=== PATIENT | female | born 1970 | race Caucasian/White ===

== ENCOUNTER 2025-01-06 12:50 | Outpatient (AMB) | payer BC, SELFPAY ==
--- NOTE | 2025-01-06 12:57 | A.SPINEOV_ITS ---
Vital Signs 01/06/25 13:05 Height 5 ft 4 in Weight 162 lb BMI 27.8 Intake Visit Reasons: second opinion/low back pain/herniated disc Intake Note: Ms. Dalal is here today for a second opinion, Low back pain. Broadcast Producer Required: No Allergies No Known Allergies Allergy (Verified 01/06/25 13:05) Physical Exam Vital Signs: BMI result Body Mass Index 27.8 Assessment & Plan Assessment & Plan (1) Disc disease, degenerative, lumbar or lumbosacral: Code(s): M51.379 - Other intervertebral disc degeneration, lumbosacral region without mention of lumbar back pain or lower extremity pain Category: Medical Qualifiers: Disc-related pain type: discogenic back pain and lower extremity pain Qualified Code(s): M51.372 - Other intervertebral disc degeneration, lumbosacral region with discogenic back pain and lower extremity pain Plan: dear colleague, on 01/06/2025 I saw for 2nd opinion Evita Dalal with a chief complaint of intractable low back HPI: this 54-year-old female underwent an L5-S1 lumbar diskectomy 3 years ago for bilateral lumbar radiculopathy. Initially the pain was on the right side but then switched to the left side. The surgery was successful in relieving the radicular symptoms. However, she continued to complain of a pain in the midlumbar sacral area . The pain is worse in the morning when she gets up. It is always there. On top of the constant pain she has frequent episodes of severe low back pain. She does say it can radiate to mostly the left buttock. The pain is interfering with her daily activities and routine life. For example, she can not longer walk the dog that this may trigger these additional severe back pains. She tried all forms of conservative management including physical therapy, yoga, cortisone injections( facet blocks and L5-S1 [id number] steroid injection) without effect. She has seen a neurosurgeon at [facility] who recommended an L5-S1 fusion. She comes to see me for 2nd opinion to see if she is a candidate for an artificial disc L5-S1. PMH: none. Surgical history total disc arthroplasty C4-5 C5-6. Medications: None Allergies: none Social history: , 1 daughter. Nonsmoker Physical Exam: pleasant female. Height 5 for rate on his 62 lb. On inspection there are no deformities. There is diffuse tenderness over the lumbosacral area. Straight leg raise is negative bilaterally. No motor deficits or sensory deficits. Radiological Studies: MRI Of the lumbar spine of 11/06/2024 shows severe lumbar degenerative disc disease L5-S1 and a large centraldisc herniation L5-S1 compressing the left S1 root. Images of an x-ray of the lumbar spine were not able for review. Impression/Plan: this patient is suffering from baseline chronic low back pain with intermittent episodes of severe additional back pain in the lumbosacral area. Imaging shows severe lumbar degenerative disc disease L5-S1 and a disc herniation. I recommended a CT of the lumbar spine as I am suspicious that the L5-S1 segment is already fused. It will also tell me if the disc extrusion is calcified or not. The type of surgical intervention is depending on the CT results. having said that, she is not a candidate for an L5-S1 total disc arthropathy due to the amount of degeneration and the fact that the L5-S1 segment overall is not really contributing to the motion of the lumbar spine. She will send the CT for me to review and depending of the results she will either need nothing done if the segment is fused and the disc is calcified or she may need a lumbar fusion or a diskectomy only if the segment is fused and the disc herniation is not calcified. Thank you for allowing me to participate in your patients care. total time spent was 50 minutes in counseling ,coordination of plan, personal review of imaging, surgical decision making and subsequent plan Charbel Hobson MD, PhD Spine Fellowship Trained Neurosurgeon Director, [facility] (2) Lumbar disc herniation with radiculopathy: Code(s): M51.16 - Intervertebral disc disorders with radiculopathy, lumbar region Category: Medical Plan j Orders: Orders CT lumbar spine wo IV con Today M51.16 - Intervertebral disc disorders with radiculopathy, lumbar region, M51.379 - Other intervertebral disc degeneration, lumbosacral region without mention of lumbar back pain or lower extremity pain Coding Level of Care Code New Pt Level 4 (89751) Diagnoses Degeneration of intervertebral disc of lumbosacral region with discogenic back pain and lower extremity pain M51.372 Disc-related pain type: discogenic back pain and lower extremity pain Lumbar disc herniation with radiculopathy M51.16
[2025-01-06 13:05] VITALS: BMI 27.8
--- OUTSIDE RECORDS SUMMARY | 2025-01-06 14:54 | XMS_ITS | Encounter Summary ---
Author Organization [facility]: [facility] & [facility] Care Address [address] [facility] [address] [place] [address] Care Team Providers Care Habilitation Assistant Name Role Phone [place] Elena CID Primary Care Provider [phone] [phone] Encounter Details Date Type Department Care Team (Late st Contact Info) Description 12/06/2024 Notation [facility] Health Information Management [facility], [address] [place] [address] Generic, Provider [address] [address] OPIOID CONSENT Social History Tobacco Use Types Packs/Day Years Used Date Smoking Tobacco: Former Cigarettes Smokeless Tobacco: Never Comments:Quit 08/14/2021 Alcohol Use Standard Drinks/Week Comments Yes 0 (1 standard drink = 0.6 oz pur e alcohol) 1-2 month [facility] Utilities Answer Date Recorded In the past 12 months has [employer], gas, oil, or water [employer] threatened to shut off services in your home? No 11/13/2023 AUDIT-C Answer Date Recorded Q1: How often do you have a drink containing alc ohol? Monthly or less 11/12/2023 Q2: How many drinks containi ng alcohol do you have on a typical day when you are drinking? 1 or 2 11/12/2023 Q3: How often do you have si x or more drinks on one occasion? Never 11/12/2023 Overall Financial Resource Strain (CARDIA) Answe r Date Recorded How hard is it for you to pa y for the very basics like food, housing, medical care, and heating? Not hard at all 11/13/2023 Hunger Vital Sign Answer Date Recorded Within the past 12 months, y ou worried that your food would run out before you got the money to buy more. Never true 11/13/19 24 Within the past 12 months, t he food you bought just didn't last and you didn't have money to get more. Never true 11/13/2023 PRAPARE - Transportation Answer Date Re corded In the past 12 months, has l ack of transportation kept you from medical appointments or from getting medications? No 03/2024 In the past 12 months, has l ack of transportation kept you from meetings, work, or from getting things needed for daily living? No 11/13/2023 Housing Stability Vital Sign Answer Jamshid e Recorded In the last 12 months, was t here a time when you were not able to pay the mortgage or rent on time? No 11/13/2023 In the last 12 months, how many places have you lived? 1 11/13/2023 In the last 12 months, was t here a time when you did not have a steady place to sleep or slept in a care home (including now)? No 11/13/2023 Sex and Gender Information Value Date Recorded Sex Assigned at Female 08/26/2023 3:54 PM EDT Gender Identity Female 08/26/2023 3:54 PM EDT Sexual Orientation Choose not to disclose 2022 3:54 PM EDT documented as of this encounter Plan of Treatment Not on file documented as of this encounter Visit Diagnoses Not on filedocumented in this encounter Care Teams Habilitation Assistant Relationship Specialty Start Date End Date Ameena Rodríguez APRN [facility] [address] [place] [address] PCP - General Nurse Practitioner - Family Medicine 02/17/22 documented as of this encounter
--- OUTSIDE RECORDS SUMMARY | 2025-01-06 14:55 | XMS_ITS | Encounter Summary ---
[facility] Organization [facility] Care Address [address] [facility] [address] [facility] [address] [place] [address] Care Team Providers Care Recreation Supervisor Name Role Phone Ameena Rodríguez APRN Primary Care Provider [phone] [phone] Reason for Referral * Specialty Services (Routine) - Closed Specialty Diagnoses / Procedures Referred By Justin cavanaugh Referred To Contact Neurosurgery Diagnoses Other cervical disc degeneration at C5-C6 level Procedures REFERRAL NEUROSURGERY Johnny Galicia MD [address] [place] [address] Mark Pulido MD [address] [place] [address] [place] [address] Referral ID Status Reason Start Date Expiration Date V isits Requested Visits Authorized [id number] Closed Consult and Treat 07/29/2023 01/25/2024 1 1 Encounter Details Date Type Department Care Team (Latest Contact Info) Description 07/30/2023 Transcribe Orders [facility] [address] [place] [address] [address] Johnny Galicia MD [address] [place] [address] Other cervical disc degeneration at C5-C6 level (Primary Dx) Social History Tobacco Use Types Packs/Day Years Used Date Smoking Tobacco: Never Smokeless Tobacco: Never Alcohol Use Standard Drinks/Week Comments Yes 0 (1 standard drink = 0.6 oz pur e alcohol) occ Sex and Gender Information Value Date Recorded Sex Assigned at Female 08/26/2023 3:54 PM EDT Gender Identity Female 08/26/2023 3:54 PM EDT Sexual Orientation Choose not to disclose 2022 3:54 PM EDT documented as of this encounter Plan of Treatment Not on file documented as of this encounter Procedures Procedure Name Priority Date/Time Associated Diagnosis Comments REFERRAL NEUROSURGERY Routine 07/30/2023 9:22 AM EDT Other cervical disc degeneration at C5-C6 level documented in this encounter Visit Diagnoses Diagnosis Other cervical disc degeneration at C5-C6 level- Primary documented in this encounter Care Teams Recreation Supervisor Relationship Specialty Start Date End Date Ameena Rodríguez APRN [facility] [address] [place] [address] PCP - General Nurse Practitioner - Family Medicine 02/17/22 documented as of this encounter
--- OUTSIDE RECORDS SUMMARY | 2025-01-06 14:55 | XMS_ITS | Clinical Summary ---
Author Organization [facility] [address] Address [address] [place] [address] Care Team Providers Care Bridge Saw Operator Name Role Phone Unavailable Primary Care Provider Unavailabl e Allergies No known active allergies Medications zolpidem (AMBIEN) 10 mg tablet Take 0.5-1 tablets (5-10 mg total) by mouth daily as needed. 04/14/2023 Active traZODone (DESYREL) 100 mg tablet Take 1 tablet (100 mg total) by mouth as needed. 03/07/2023 Active PARoxetine (PAXIL) 20 mg tablet Take 1 tablet (20 mg total) by mouth daily. 03/17/2023 Active LORazepam (ATIVAN) 1 mg tablet Take 0.5-1 tablets (0.5-1 mg total) by mouth as needed. 04/14/2023 Active Family History Medical History Relation Name Comments No Known Problems Father No Known Problems Mother Relation Name Status Comments Father Alive Mother Alive Social History Tobacco Use Types Packs/Day Years Used Date Smoking Tobacco: Never Smokeless Tobacco: Never Tobacco Cessation:Counseling Given: Not Answered Alcohol Use Standard Drinks/Week Comments Yes 0 (1 standard drink = 0.6 oz pur e alcohol) occ Comments No Sex and Gender Information Value Date Recorded Sex Assigned at Not on file Legal Sex Female 11:00 AM EDT Gender Identity Not on file Sexual Orientation Not on file Last Filed Vital Signs Vital Sign Reading Time Taken Comments Blood Pressure 118/65 04/25/2023 11:14 AM EDT Pulse 65 04/25/2023 11:14 AM EDT Temperature 36.7 ??C (98.1 ??F) 04/25/2023 11:14 AM E DT Respiratory Rate 16 04/25/2023 11:14 AM EDT Oxygen Saturation 96% 04/25/2023 11:14 AM EDT Inhaled Oxygen Concentration - - Weight 73.5 kg (162 lb) 04/25/2023 11:10 AM EDT Height 163.8 cm (5' 4.5 ) 04/25/2023 11:10 AM ED T Body Mass Index 27.38 04/25/2023 11:10 AM EDT Plan of Treatment Health Maintenance Due Date Last Done Comments HIV screening 1981 Hepatitis C screening 1986 Cervical cancer screening 1989 Lipid disorder screening 2008 Colon cancer screening, Colonoscopy 2013 Diabetes screening 2013 Shingles vaccine (Shingrix) (1 of 2 - Shingrix (RZV) 2 Dose Standard Series) 2018 Influenza vaccine 06/09/2024 11/21/2016, , 08/11/2009 Covid-19 vaccine series ( season) 2024 09/29/2021, 03/02/2021, 02/02/2021 Breast cancer screening 05/20/2025 05/20/20, 05/13/2019, 12/31/2017, Additional history exists Tetanus adult (Td q 10,TDAP once) 07/27/2028 07/27/2018, 08/15/2008 Pneumococcal Vaccine (50+ years) (2 of 2 - PCV) 2033 11/21/2016 RSV Discussion (1 - 1-dose 75+ series) 2043 Meningococcal Vaccine Aged Out No beltran laith eligible based on patient's age to complete this topic Insurance [facility]
--- OUTSIDE RECORDS SUMMARY | 2025-01-06 14:55 | XMS_ITS ---
Author Organization [facility] Health Services Address [address] [place] [address] Care Team Providers Care Caster Operator Name Role Phone Ameena Rodríguez Primary Care Provider Adarsh Driver [phone] REASON FOR VISIT constipation Social History Sex Assigned At : Social History Observation Description Sex Assigned At Female Encounters Encounter Location Date Provider Diagnosis [facility] [address] [facility] [address] [place] [address] 08/05/2024 Adarsh Aguillon Plan Of Treatment No Information Progress Notes * Curry DALALCharlyOB: 9 (54 yo F)Acc No.[id number]:08/05/2024 UNLOCKED PROGRESS NOTE Progress Note Patient:Evita CAAL Provider:?Adarsh Aguillon M.D. :1970???Age:53 Y???Sex:Female D ate:08/05/2024 Address:[address] [place], [place] [address] Pcp:Ameena Rodríguez Subjective: * Chief Complaints: * ???1. Constipation. * Medical History:? Objective: * Vitals:? Assessment: Plan: * Treatment: * * The named appointment provid er may or may not be the originator of this progress note, and it is not deemed complete until electronically signed by the appointment provider. Sign off status: Pending * Provider:?Adarsh Aguillon M.D. Date:? 08/05/2024 Generated for Nikos ackerman/Rach/eTransmitting on:?01/06/2025 02:55 PM EST
--- OUTSIDE RECORDS SUMMARY | 2025-01-06 14:55 | XMS_ITS | Encounter Summary ---
Author Organization [facility]: [facility] Health Care Address [address] [facility] [address] [place] [address] Care Team Providers Care Grease Remover Name Role Phone Ameena Rodríguez APRN Primary Care Provider [phone] Encounter Details Date Type Department Care Team (Late st Contact Info) Description 04/23/2023 Notation [facility] Health Information Management [facility], [address] [place] [address] Generic, Provider [address] [address] Social History Tobacco Use Types Packs/Day Years [...] Procedure Name Priority Date/Time Associated Diagnosis Comments SCANNED MISCELLANEOUS LAB TEST 04/23/2023 11:59 PM EDT documented in this encounter Results * SCANNED MISCELLANEOUS LAB TEST (04/23/2023 11:59 PM EDT) Provider Generic LAB BLOOD ORDERABLES documented in this encounter Visit Diagnoses Not on filedocumented in this encounter Care Teams Grease Remover Relationship Specialty Start Date End Date Ameena Rodríguez APRN [facility] [address] [place] [address] PCP - General Nurse Practitioner - Family Medicine 02/17/22 documented as of this encounter
--- OUTSIDE RECORDS SUMMARY | 2025-01-06 14:55 | XMS_ITS | Encounter Summary ---
Author Organization [facility] Address [facility] [place] [address] Care Team Providers Care Mica Laminating Machine Feeder Name Role Phone Amena Huang PALAK Primary Care Provider [phone] Encounter Details Date Type Department Care Team ([facility] st Contact Info) Description 01/05/2025 2:40 PM EST Office Visit Gastroenterology and Hepatology at [address] [phone] Micheal Oconnor MD [address] [place] [address] [place] [address] Chronic constipation Social History Tobacco Use Types Packs/Day Years Used Date Smoking Tobacco: Former Cigarettes 1 31.7 0 11/09/1988 - 08/09/2020 Smokeless Tobacco: Never Alcohol Use Standard Drinks/Week Comments Yes 2 (1 standard drink = 0.6 oz pur e alcohol) 1-2 drinks per month IPV Inpatient Questions Answer Date Recorded Does Anyone Try to Keep You From Having Contact with Others or Doing Things Outside Your Home? no 12/02/2024 Feels Threatened by Someone no 11/10 Feels Unsafe at Home or Work/School no 12/02/2024 Physical Signs of Abuse Present no 12/02/2024 Sex and Gender Information Value Date Recorded Sex Assigned at Female 08/15/2021 4:34 PM EDT Gender Identity Female 08/15/2021 4:34 PM EDT Sexual Orientation Choose not to disclose 2020 4:34 PM EDT documented as of this encounter Last Filed Vital Signs Vital Sign Reading Time Taken Comments Blood Pressure 106/78 01/05/2025 2:47 PM EST Pulse 84 01/05/2025 2:47 PM EST Temperature - - Respiratory Rate - - Oxygen Saturation 96% 01/05/2025 2:47 PM EST Inhaled Oxygen Concentration - - Weight 73 kg (161 lb) 01/05/2025 2:47 PM EST Height - - Body Mass Index 27.64 12/02/2024 2:22 PM EST documented in this encounter Patient Instructions * Patient Instructions* Micheal Oconnor MD - 01/05/2025 2:40 PM EST Take one serving of a fiber supplement such as Citrucel or Metamucil or other once daily for a weekthen increase to twice daily. Keep well hydrated Keep active physically If needed can use senna (PM) or Miralax (AM) once to twice daily as needed Garden of Life probiotic * Attachments The following attachments cannot be sent through Care Everywhere. * High-Fiber Diet (Andorran) * Constipation (Andorran) documented in this encounter Progress Notes * Micheal Oconnor MD - 01/05/2025 2:40 PM EST Reason for Visit: Consultation regarding IBS requested by Luis Leigh. History of present illness: Evita Dalal is a 54 y.o. female. She is a history of chronic constipation dating back many years. She has tried various laxatives as well as Linzess in the past. She continues to have issues with constipation although she does state that with the use of fiber she has been going more frequently recently. Colonoscopy last month with diverticulosis otherwise normal. Normal mucosa throughout the colon. Bowel prep was adequate. She currently does a teaspoon of fiber supplement once daily. She is unsure of which one it is. She does try to keep well-hydrated. Her activity level has gone down and she is having some spinal issues and is possibly going to have surgery for lower spinal disease in the near future. 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 Degeneration of lumbosacral intervertebral disc M51.379 Chronic allergic rhinitis J30.9 OAB (overactive bladder) N32.81 Pelvic pressure in female R10.2 Acute non intractable tension-type headache G44.209 Myofascial neck pain, Right M54.2 Numbness and tingling in left hand, likely median neuropathy R20.0, R20.2 Hormone replacement therapy (postmenopausal) Z79.890 Social History Socioeconomic History Marital status: Spouse name: Not on file Number of children: Not on file Years of education: Not on file Highest education level: Not on file Occupational History Not on file Tobacco Use Smoking status: Former Current packs/day: 0.00 Average packs/day: 1 pack/day for 31.7 years (31.7 ttl pk-yrs) Types: Cigarettes Start date: 11/09/1988 Quit date: 08/09/2020 Years since quittin.4 Smokeless tobacco: Never Vaping Use Vaping status: Never Used Substance and Sexual Activity Alcohol use: Yes Alcohol/week: 2.0 - 3.0 standard drinks of alcohol Types: 2 - 3 Cans of beer per week Comment: 1-2 drinks per month Drug use: Yes Frequency: 7.0 times per week Types: Marijuana Sexual activity: Yes Partners: Male control/protection: Post-menopausal Other Topics Concern Not on file Social History Narrative Moved from [place] to [place] in her 20s with her boyfriend who is now her . Moved from [place] to [place] approximately 06/2019. Working from home. Has been able to meet some new people after the move. Parents living in [place]. Social Determinants of Health Financial Resource Strain: Low Risk (11/13/2023) Received from [facility]: [facility], [facility]: [facility] Overall Financial Resource Strain (CARDIA) Difficulty of Paying Living Expenses: Not hard at all Food Insecurity: No Food Insecurity (11/13/2023) Received from [facility] [employer]: [facility], [facility]: [facility] Hunger Vital Sign Worried About Running Out of Food in the Last Year: Never true Ran Out of Food in the Last Year: Never true Transportation Needs: No Transportation Needs (11/13/2023) Received from [facility]: [facility], [facility]: [facility] PRAPARE - Transportation Lack of Transportation (Medical): No Lack of Transportation (Non-Medical): No Physical Activity: Not on file Intimate Partner Violence: Not At Risk (12/02/2024) DH IPV Inpatient Questions Prevent Contact with Others: no Feels Threatened by Someone: no Feels Unsafe at Home: no Physical Signs of Abuse Present: no Housing Stability: Low Risk (11/13/2023) Received from [facility]: [facility], [facility]: [facility] Housing Stability Vital Sign Unable to Pay for Housing in the Last Year: No Number of Places Lived in the Last Year: 1 Unstable Housing in the Last Year: No Family History Problem Relation Age of Onset Breast Cancer Other great aunt Physical Exam Patient Vitals for the past 24 hrs: Pulse BP SpO2 01/05/25 1447 84 106/78 96 % Awake and alert, oriented x 3, NAD Mood appropriate No gross neurological deficits Sclera anicteric, head atraumatic Skin free of jaundice Impression and Plan 54 y.o. female with chronic constipation I suspect she has slow transit constipation. We talked about management of this including high-fiber diet. Diet with 25 to 35 g dietary fiber was recommended initially. She can get this through combination of supplement as well as diet. Should keep well-hydrated as well as try to keep physically active which currently limited due to her back pain with spinal disease. We talked about various laxatives including MiraLAX and senna. Combination of these can be used with senna in the evening and MiraLAX in the morning if need be. Will hold off on resuming Linzess or other chronic constipation medication at this time pending herresponse to the above. documented in this encounter Plan of Treatment Not on file documented as of this encounter Visit Diagnoses Diagnosis Chronic constipation Unspecified constipation documented in this encounter Care Teams Mica Laminating Machine Feeder Relationship Specialty Start Date End Date Amena Huang APRN [address] [place] [address] PCP - General Family Medicine 12/02/24 documented as of this encounter
--- OUTSIDE RECORDS SUMMARY | 2025-01-06 14:55 | XMS_ITS | Referral Summary ---
Author Organization [facility] Care Address [address] [place] [address] [address] [place] [address] Care Team Providers Care Knock Out Hand Name Role Phone Ameena Rodríguez APRN Primary Care Provider [phone] Encounters Date Type Department Care Team Description 12/06/2024 Notation [facility] Health Information Management [facility], [address] [place] [address] Generic, Provider OPIOID CONSENT 12/06/2024 Prep for Procedure [facility] [place] [facility] [address] [place] [phone] Adarsh aWll MD 12/06/2024 1:30 PM EST - 12/06/2024 11:59 PM EST Hospital Encounter [facility] [address] [place] [phone] Adarsh Wall MD Lumbar radiculopathy Discharge Disposition: Routine Discharge Home 12/06/2024 2:00 PM EST Office Visit [facility] [place] [facility] [address] [place] [phone] Adarsh Wall MD Lumbar radiculopathy (Primary Dx); Recurrent displacement of lumbar disc; Lumbar spondylosis 11/29/2024 Orders Only [facility] [address] [place] [phone] Adarsh Wall MD Lumbar radiculopathy (Primary Dx) 11/24/2024 2:20 PM EST - 11/24/2024 11:59 PM EST Hospital Encounter [facility] [address] [phone] Jennifer Dow APRN Chronic bilateral low back pain, unspecified whether sciatica present; Myofascial pain; Lumbosacral spondylosis without myelopathy Discharge Disposition: Routine Discharge Home 11/21/2024 Telephone [facility] at [address] [phone] Jennifer Castro RN 11/07/2024 3:41 PM EST - 11/07/2024 11:59 PM EST Hospital Encounter [facility] at [address] [phone] Iker Hoang MD Discharge Disposition: Routine Discharge Home 11/07/2024 8:17 AM EST - 11/07/2024 3:40 PM EST Hospital Encounter [facility] [address] [phone] Iker Hoang MD Chronic bilateral low back pain, unspecified whether sciatica present; Lumbar herniated disc Discharge Disposition: Routine Discharge Home 11/06/2024 10:21 AM EST - 11/06/2024 11:59 PM EST Hospital Encounter [facility] [address] [phone] Jennifer Dow APRN Chronic bilateral low back pain, unspecified whether sciatica present; Lumbar herniated disc Discharge Disposition: Routine Discharge Home 10/13/2024 7:58 AM EST - 10/13/2024 11:59 PM EST Hospital Encounter [facility] at [address] [phone] Jennifer Dow APRN Chronic bilateral low back pain, unspecified whether sciatica present (Primary Dx); Lumbar herniated disc Discharge Disposition: Routine Discharge Home from Last 3 Months Allergies Active Allergy Reactions Criticality Noted Date Comments Dander Medium 10/15/2023 Cats and dogs Medications Medication Sig Dispensed Refills Start Date End Date Status cetirizine (ZYRTEC) 10 MG Oral Tab once daily every evening. Active traZODone HCl (DESYREL) 100 MG Oral Tab Take 100 mg by mouth at bedtime. 12/12/2021 Active Estradiol 0.0375 MG/24HR Transdermal PATCH WEEKLY CHANGE 1 PATCH ON THE SKIN ONCE A WEEK 07/05/2023 Active progesterone (PROMETRIUM) 100 MG Oral Cap at bedtime. 06/27/2023 Active ibuprofen (MOTRIN) 600 MG Oral Tab Take 600 mg by mouth every 6 hours as needed. 07/31/2017 Active TRULANCE 3 MG Oral Tab once daily every evening. 09/08/2023 Active tretinoin (RETIN A) 0.1 % EX Cream APPLY TO AFFECTED EVERY ONCE A DAY AT BEDTIME 07/09/2023 Active VITAMIN D PO Take by mouth once daily every evening. Active MAGNESIUM PO Take by mouth once daily every evening. Active zolpidem (AMBIEN) 10 MG Oral Tab TAKE 1 TABLET BY MOUTH NEEDED FOR SLEEP*08/2108/22/2024 Active desvenlafaxine (PRISTIQ) 100 MG Oral TABLET SR 24 HR Take 100 mg by mouth daily. Swallow whole, do not break, crush or chew. Active clonazePAM (KLONOPIN) 0.5 MG Oral Tab Take 0.5 mg by mouth twice a day as needed. Active QUEtiapine fumarate (SEROQUEL) 50 MG Oral Tab TAKE TABLET BY MOUTH DAILY NEEDED FOR MOOD CHANGES/ANXIET Y 11/16/2024 Active Probiotic Product (PROBIOTIC BLEND PO) Active oxyCODONE immediate release (ROXICODONE) 5 MG Oral TabIndications:Chr onic bilateral low back pain, unspecified whether sciatica present,Myofascial pain,Lumbosacral spondylosis without myelopathy Take 0.5-1 Tablets (2.5-5 mg total) by mouth twice a day as needed for Severe Pain . May cause dizziness/drow siness 15 Tablet 12/22/2024 03/22/2025 Active oxyCODONE immediate release (ROXICODONE) 5 MG Oral TabIndications:Chr onic bilateral low back pain, unspecified whether sciatica present,Myofascial pain,Lumbosacral spondylosis without myelopathy Take 0.5-1 Tablets (2.5-5 mg total) by mouth twice a day as needed for Severe Pain . May cause dizziness/drow siness 15 Tablet 11/24/2024 12/22/2024 Discontinued (Reorder) Active Problems Problem Noted Date Diagnosed Date Lumbar spondylosis 12/06/2024 Myofascial pain 12/01/2024 Lumbar herniated disc 10/13/2024 Spondylosis without myelopat hy or radiculopathy, lumbar region 09/23/2024 Cervical stenosis of spinal canal 11/12/2023 Cervical stenosis of spine 08/27/2023 OAB (overactive bladder) 03/04/2022 Assessment & Plan (03/04/2022 1:18 PM EDT): The pt was counseled that overactive bladder (OAB) is a symptom complex with a variable and chronic course that needs to be managed over time, that it primarily affects quality of life, that there is no single ideal treatment, and that available treatments vary in the effort required from the patient as well as in invasiveness, risk of adverse events, and reversibility. ?? We discussed potential treatment strategies including behavioral modifications (timed voiding, urge suppression techniques, pelvic floor muscle training, fluid management, avoidance of bladder irritants such as caffeine, citrus juices, alcohol, and spicy foods), pharmacotherapy with antimuscarinic medications, and surgical procedures. I emphasized that trials of multiple therapeutic options may be required before symptom control is achieved. The patient expressed understanding. urine is bland. No microscopic hematuria no gross hematuria. Patient does have a 15 year pack smoking history she has since quit. If her symptoms do not improve I would recommend a cystoscopy. I have ordered a ultrasound and x-ray to evaluate as well. for now she will work on minimizing bladder irritants timed voiding and constipation management. Pelvic pressure in female 03/04/2022 Assessment & Plan (03/04/2022 1:13 PM EDT): Possibly due to chronic constipation. I have ordered a pelvic ultrasound transvaginal if necessary. If abnormal results will refer to Gynecology. Atrophic vaginitis 03/04/2022 Assessment & Plan (03/04/2022 1:17 PM EDT): Today we discussed the risks and benefits of topical vaginal estrogen use. We discussed the lower likelihood of these events with topical estrogen as a systemic absorption is low. We discussed the risk of high-dose systemic estrogen which includes the risk of uterine and breast carcinoma, venous thromboembolic events, cardiovascular events. Constipation 03/04/2022 Assessment & Plan (03/04/2022 1:16 PM EDT): For constipation: beginning today I want you to take 2 heaping tbsp of MiraLax in the morning and in the evening. Your going to do this for 7 days. Then you will taper that to daily 1 to begin having a soft formed bowel movement. docusate senna 1 capsule twice a day starting today. Florastor or Culturelle is a probiotic this can also help with constipation and improving both got and vaginal mike. ([address] santa of lactobacillus ) daily Magnesium oxide 400 mg daily helps to improve movement of intestines. Continue drinking fluids aim for 64 oz- 2 liters of water daily. Dried prunes, apricots may help. If need to clean out use one bottle of citrate of mag.. If not improving refer to GI. Lumbosacral spondylosis without myelopathy 02/06 Cigarette smoker 09/03/2020 Cervical spondylosis with radiculopathy 03/11/20 17 Assessment & Plan (09/19/2023 9:15 AM EST): Patient presents with headache, neck pain, trapezius pain. She has not responded to PT, medications. Her MRI showed C5-6, C6-7 disc herniations without cord signal changes. She is a candidate for C5-6, C6-7 total disc arthroplasty. I explained in detail the nature, indications, risks, benefits and alternatives to surgery. The patient's questions were solicited and answered to her satisfaction. Patient verbalized that she understands what we discussed. She will consider the options discussed , and will contact us with any additional questions or to make plans to proceed with surgery. Depression, major, recurrent, mild 11/21/2016 Chronic low back pain 11/05/2016 Vertigo 11/21/2009 Human papilloma virus infection 11/21/2009 10/15/2023 IBS (irritable bowel syndrome) 11/21/2009 1 12/16/2022 Anxiety disorder 03/23/2009 Overview (02/26/2022): Lexapro Lexapro Lexapro Lexapro Protein S deficiency complicating 03/0910/15/2023 Overview (10/15/2023): No history of VTE On prophylactic lovenox, transitioned to heparin 7500 bid 2 (taking 5000 bid per 05/22 note) Last dose 10pm 06/01 Plan prophylaxis only if delivery No history of VTE On prophylactic lovenox, transitioned to heparin 7500 bid 2 (taking 5000 bid per 05/22 note) Last dose 10pm 06/01 Plan prophylaxis only if delivery No history of VTE On prophylactic lovenox, transitioned to heparin 7500 bid / (taking 5000 bid per 05/22 note) Last dose 10pm 06/01 Plan prophylaxis only if delivery No history of VTE On prophylactic lovenox, transitioned to heparin 7500 bid 2 (taking 5000 bid per 05/22 note) Last dose 10pm 06/01 Plan prophylaxis only if delivery Social History Tobacco Use Types Packs/Day Years Used Date Smoking Tobacco: Former Cigarettes Smokeless Tobacco: Never Tobacco Cessation:Counseling Given: Not Answered Comments:Quit 08/14/2021 Alcohol Use Standard Drinks/Week Comments Yes 0 (1 standard drink = 0.6 oz pur e alcohol) 1-2 month [facility] Utilities Answer Date Recorded In the past 12 months has [employer] gas, oil, or water [employer] threatened to shut off services in your [...] place to sleep or slept in a alf (including now)? No 11/13/2023 Sex and Gender Information Value Date Recorded Sex Assigned at Female 08/26/2023 3:54 PM EDT Gender Identity Female 08/26/2023 3:54 PM EDT Sexual Orientation Choose not to disclose 2022 3:54 PM EDT Last Filed Vital Signs Vital Sign Reading Time Taken Comments Blood Pressure 128/69 11/24/2024 2:40 PM EST Pulse 94 11/24/2024 2:40 PM EST Temperature 36.6 ??C (97.9 ??F) 11/13/2023 10:[address] Respiratory Rate 16 11/24/2024 2:40 PM EST Oxygen Saturation 97% 11/24/2024 2:40 PM EST Inhaled Oxygen Concentration - - Weight 74.8 kg (165 lb) 11/24/2024 2:38 PM EST Height 163.8 cm (5' 4.5 ) 11/24/2024 2:38 PM EST Body Mass Index 27.88 11/24/2024 2:38 PM EST Plan of Treatment Not on file Medical Devices Implanted Type Area Premium Note Interest Calculator Clerk Device Identifier Shelf Expiration Date Model / Serial / Lot Simplify Disc Sz2 Ht4 [id number] Implanted:Qty: 1 on 11/12/2023 by Adarsh Wall MD at [facility] N/A: Cervical [employer]ine [employer] 03/18/2027 [id number] / / [id number] Simplify Disc Sz2 Ht5 [id number] Implanted:Qty: 1 on 11/12/2023 by Adarsh Wall MD at [facility] N/A: Cervical [employer]ine [employer] 06/09/2027 [id number] / / [id number] Explanted Type Area Premium Note Interest Calculator Clerk Device Identifier Shelf Expiration Date Model / Serial / Lot Bunion Hardware Procedures Procedure Name Priority Date/Time Associated Diagnosis Comments XR SPINE LUMBAR 4+ VIEWS Routine 12/06/2024 1:46 PM EST Lumbar radiculopathy XR PAIN MGT FLUORO ([facility] ONLY) Routine 11/07/2024 3:41 PM EST EPID/SPINAL, LUMBAR OR SACRAL, SINGLE W/ IMAGING INCLUDED ([id number]) Routine 11/07/2024 8:30 AM EST Chronic bilateral low back pain, unspecified whether sciatica present Lumbar herniated disc MR SPINE-LUMBAR W/O CONT Routine 11/06/2024 11:06 AM EST Chronic bilateral low back pain, unspecified whether sciatica present Lumbar herniated disc COMPREHENSIVE METABOLIC PANEL Routine 10/21/2023 2:39 PM EST Pre-op exam from Last 3 Months or Most Recently Relevant to Health Maintenance Results * XR Spine Lumbar 4+ Views (12/06/2024 1:46 PM EST) Anatomical Region Laterality Modality Spine Computed Radiogr aphy 12/06/2024 1:39 PM EST Impressions 12/06/2024 8:47 PM EST There is no abnormal vertebral motion between flexion and extension. Severe disc space height loss at L5-S1. Large stool burden. Correlate for constipation Electronically signed by:Vanna Whitt MD 12/06/2024 8:47 PM Narrative 12/06/2024 8:47 PM EST LUMBAR SPINE SERIES WITH FLEXION AND EXTENSION VIEWS, 4 VIEWS INDICATION: lumbar pain. COMPARISON: 11/06/2024. FINDINGS: Lumbar lordosis: Preserved. Scoliosis: None significant. Vertebrae: Preserved. Disc spaces: Severe disc space height loss at L5-S1. Flexion and extension: No abnormal movement. SI joints: Preserved without erosions. Soft tissues: Large stool burden, correlate for constipation. Other osseous structures: Unremarkable. Procedure Note Vanna Whitt MD - 12/06/2024 LUMBAR SPINE SERIES WITH FLEXION AND EXTENSION VIEWS, 4 VIEWS INDICATION: lumbar pain. COMPARISON: 11/06/2024. FINDINGS: Lumbar lordosis: Preserved. Scoliosis: None significant. Vertebrae: Preserved. Disc spaces: Severe disc space height loss at L5-S1. Flexion and extension: No abnormal movement. SI joints: Preserved without erosions. Soft tissues: Large stool burden, correlate for constipation. Other osseous structures: Unremarkable. IMPRESSION: There is no abnormal vertebral motion between flexion and extension. Severe disc space height loss at L5-S1. Large stool burden. Correlate for constipation Electronically signed by:Vanna Whitt MD 12/06/2024 8:47 PM Adarsh Wall MD SHERRY * XR Pain Management Fluoro (11/07/2024 3:41 PM EST) Narrative [facility] - 11/07/2024 3:41 PM EST IMPRESSION Fluoroscopy was provided to Dr. Iker Hoang MD. No interpretation was provided by the [facility] Department of Diagnostic Imaging. Iker Hoang MD [facility] * MR Spine-Lumbar w/o Contrast (11/06/2024 11:06 AM EST) Anatomical Region Laterality Modality Spine Magnetic Resonan ce Impressions 11/07/2024 12:40 PM EST Large extruded disc fragment in the left mid/paramedian L5-S1 level causing compression of the left S1 nerve root against the left facet. This is essentially unchanged compared to prior study. Secondary mild enlargement of the left nerve root seen with left subarticular recess stenosis.. Electronically signed by: Franko Syed MD 11/07/2024 12:40 PM Narrative 11/07/2024 12:40 PM EST MRI LUMBAR SPINE INDICATION: Low back pain, prior surgery, new symptoms. COMPARISON: MRI lumbar spine 10/28/2022. TECHNIQUE: Multiplanar and multisequence imaging was performed without intravenous contrast. MIPS Quality Measure: Appropriate Follow-up Imaging for Incidental Abdominal Lesions: In this report, any dictated adrenal lesion or cystic renal lesion without stated specific follow-up recommendations is to be considered incidental and per consensus recommendations requires no follow-up imaging. FINDINGS: Localizer images: Unremarkable. Spinal alignment: Normal lumbar lordosis. No subluxation. Scoliosis: No significant scoliosis. Vertebrae: Vertebral bodies maintain normal height. Small hemangioma seen within the T4 vertebral body, no additional osseous lesions seen. Age-appropriate marrow signal seen throughout the vertebral bodies with minimal increased T1/T2 Modic endplate degenerative changes L5-S1. Disc spaces: Severe disc space narrowing L5-S1 with subtle posterior subluxation of L5 on S1. The remainder of disc spaces maintain normal height with mild early disc desiccation L4-L5. The remainder of disc spaces maintain normal trilaminar signal characteristics. Spinal cord and canal: Normal in caliber and signal. No epidural collection or mass. Conus termination: Superior endplate of L1. Visualized retroperitoneum and soft tissues: Unremarkable. T12-L1: No significant abnormality. L1-L2: No significant abnormality. L2-L3: No significant abnormality. L3-L4: Normal. L4-L5: Minimal early concentric disc bulge without evidence of central or foraminal stenosis. L5-S1: Midline/left paramedian extruded disc complex measuring 1.2 cm craniocaudally by 7 mm AP by 1.25 cm transversely. The extruded fragment compresses the left S1 nerve root against the adjacent left facet. Nerve root itself is minimally increased in size and intermediate signal relative to the right. Bilateral facet arthropathy is seen. Concentric disc bulge/endplate osteophyte complex noted. Left subarticular recess stenosis with the right foramen showing mild narrowing Procedure Note Franko Syed MD - 11/07/2024 MRI LUMBAR SPINE INDICATION: Low back pain, prior surgery, new symptoms. COMPARISON: MRI lumbar spine 10/28/2022. TECHNIQUE: Multiplanar and multisequence imaging was performed without intravenous contrast. MIPS Quality Measure: Appropriate Follow-up Imaging for Incidental Abdominal Lesions: In this report, any dictated adrenal lesion or cystic renal lesion without stated specific follow-up recommendations is to be considered incidental and per consensus recommendations requires no follow-up imaging. FINDINGS: Localizer images: Unremarkable. Spinal alignment: Normal lumbar lordosis. No subluxation. Scoliosis: No significant scoliosis. Vertebrae: Vertebral bodies maintain normal height. Small hemangioma seen within the T4 vertebral body, no additional osseous lesions seen. Age-appropriate marrow signal seen throughout the vertebral bodies with minimal increased T1/T2 Modic endplate degenerative changes L5-S1. Disc spaces: Severe disc space narrowing L5-S1 with subtle posterior subluxation of L5 on S1. The remainder of disc spaces maintain normal height with mild early disc desiccation L4-L5. The remainder of disc spaces maintain normal trilaminar signal characteristics. Spinal cord and canal: Normal in caliber and signal. No epidural collection or mass. Conus termination: Superior endplate of L1. Visualized retroperitoneum and soft tissues: Unremarkable. T12-L1: No significant abnormality. L1-L2: No significant abnormality. L2-L3: No significant abnormality. L3-L4: Normal. L4-L5: Minimal early concentric disc bulge without evidence of central or foraminal stenosis. L5-S1: Midline/left paramedian extruded disc complex measuring 1.2 cm craniocaudally by 7 mm AP by 1.25 cm transversely. The extruded fragment compresses the left S1 nerve root against the adjacent left facet. Nerve root itself is minimally increased in size and intermediate signal relative to the right. Bilateral facet arthropathy is seen. Concentric disc bulge/endplate osteophyte complex noted. Left subarticular recess stenosis with the right foramen showing mild narrowing IMPRESSION: Large extruded disc fragment in the left mid/paramedian L5-S1 level causing compression of the left S1 nerve root against the left facet. This is essentially unchanged compared to prior study. Secondary mild enlargement of the left nerve root seen with left subarticular recess stenosis.. Electronically signed by: Franko Syed MD 11/07/2024 12:40 PM Jennifer Dow APRN MR * (ABNORMAL) Comprehensive Metabolic Panel (10/21/2023 2:39 PM EST) Sodium 138 136 - 145 mmol/L [facility] METHOD 10/21/2023 4:44 PM [facility] Potassium 4.3 3.5 - 5.1 mmol/L [facility] SEROLOGY [facility] METHOD 10/21/2023 4:44 PM [facility] Chloride 105 98 - 107 mmol/L [facility] METHOD 10/21/2023 4:44 PM [facility] Carbon Dioxide 28 20 - 31 mmol/L [facility] METHOD 10/21/2023 4:44 PM [facility] Anion Gap 5 5 - 15 mmol/L [facility] METHOD 10/21/2023 4:44 PM [facility] Glucose 109(H) 74 - 100 mg/dL [facility] METHOD 10/21/2023 4:44 PM [facility] BUN 21 9 - 23 mg/dL [facility] METHOD 10/21/2023 4:44 PM [facility] Creatinine 0.78 0.55 - 1.02 mg/dL [facility] METHOD 10/21/2023 4:44 PM [facility] BUN/Creatinine Ratio 26.92 [facility] METHOD 10/21/2023 4:44 PM [facility] Calcium 9.3 8.3 - 10.6 mg/dL [facility] METHOD 10/21/2023 4:44 PM [facility] Protein, Total 6.5 5.7 - 8.2 g/dL [facility] METHOD 10/21/2023 4:44 PM [facility] Albumin 4.3 3.2 - 4.8 g/dL [facility] METHOD 10/21/2023 4:44 PM [facility] AST 15 <=34 U/L [facility] METHOD 10/21/2023 4:44 PM [facility] ALT 12 10 - 49 U/L [facility] METHOD 10/21/2023 4:44 PM [facility] ALK Phos 68 46 - 116 U/L [facility] METHOD 10/21/2023 4:44 PM [facility] Bilirubin, Total 0.3 0.3 - 1.2 mg/dL [facility] METHOD 10/21/2023 4:44 PM EST [facility] Globulin 2.2 g/dL 10/21/2023 4:44 PM EST [facility] Albumin Globulin Ratio 1.95 10/21/2023 4:44 PM EST [facility] eGFR 90 >=60 mL/min/1.7 3m*2 10/21/2023 4:44 PM EST [facility] Blood ENTIRE ANTECUBITAL VEIN / Unknown Venipuncture / Unknown 10/21/2023 2:39 PM EST 10/21/2023 2:39 PM EST Evita Velázquez [employer] OFFICER LAB BLOOD ORDER AKILAH [facility] [address] [place] [address] from Last 3 Months or Most Recently Relevant to Health Maintenance Care Teams Knock Out Hand Relationship Specialty Start Date End Date Ameena Rodríguez APRN [facility] [address] [place] [id number] PCP - General Nurse Practitioner - Family Medicine 02/17/22
--- OUTSIDE RECORDS SUMMARY | 2025-01-06 14:55 | XMS_ITS | Encounter Summary ---
Author Organization [facility]: [facility] Care Address [address] [place] [address] Care Team Providers Care Business Services Analyst Name Role Phone Ameena Rodríguez APRN Primary Care Provider [phone] Encounter Details Date Type Department Care Team (Late st Contact Info) Description 07/30/2023 Notation [facility] Health Information Management [facility], [address] [place] [phone] Generic, Provider [address] [address] MEDICAL SUMMARY Social History Tobacco Use Types Packs/Day Years [...] on filedocumented in this encounter Care Teams Business Services Analyst Relationship Specialty Start Date End Date Ameena Rodríguez APRN [facility] [address] [place] [phone] PCP - General Nurse Practitioner - Family Medicine 02/17/22 documented as of this encounter
--- OUTSIDE RECORDS SUMMARY | 2025-01-06 14:55 | XMS_ITS | Continuity of Care Document ---
Author Name UNKNOWN, UNKNOWN Address [address] [place] [address] [address] [place] [address] Organization Unknown Address [address] [place] [address] [address] [place] [address] Medications Medication SIG Start Date Status TRULANCE 3 MG TABLET 2024-01-28 active Problems * UNKNOWN on:
--- OUTSIDE RECORDS SUMMARY | 2025-01-06 14:55 | XMS_ITS | Encounter Summary ---
Author Organization [facility]: [facility] & [facility] Address [address] [place] [address] [place] [address] Care Team Providers Care Grounds Supervisor Name Role Phone Ameena Rodríguez APRN Primary Care Provider [phone] Reason for Visit * Reason Onset Date Comments Refill Request 12/10/2023 Encounter Details Date Type Department Care Team (Late st Contact Info) Description 12/10/2023 Refill [facility] [address] [place] [address] [address] [place] [id number] Mariia Cantu APRN Refill Request Social History Tobacco Use Types Packs/Day Years Used Date Smoking Tobacco: Former Cigarettes Smokeless Tobacco: Never Comments:Quit 08/14/2021 Alcohol Use Standard Drinks/Week Comments Yes 0 (1 standard drink = 0.6 oz pur e alcohol) 1-2 month [facility] Utilities Answer Date Recorded In the past 12 months has [employer], gas, oil, or water [employer] threatened to shut off services in your [...] place to sleep or slept in a assisted (including now)? No 11/13/2023 Sex and Gender Information Value Date Recorded Sex Assigned at Female 08/26/2023 3:54 PM EDT Gender Identity Female 08/26/2023 3:54 PM EDT Sexual Orientation Choose not to disclose 2022 3:54 PM EDT documented as of this encounter Plan of Treatment Not on file documented as of this encounter Visit Diagnoses Diagnosis S/P cervical disc replacement documented in this encounter Care Teams Grounds Supervisor Relationship Specialty Start Date End Date Ameena Rodríguez APRN [facility] [address] [place] [address] PCP - General Nurse Practitioner - Family Medicine 02/17/22 documented as of this encounter
--- OUTSIDE RECORDS SUMMARY | 2025-01-06 14:55 | XMS_ITS | Encounter Summary ---
Author Organization [facility]: [facility] & [facility] Address [address] [facility] [address] [address] [place] [address] Care Team Providers Care Secondary Connector Armature Name Role Phone Ameena Rodríguez APRN Primary Care Provider [phone] Encounter Details Date Type Department Care Team (Late st Contact Info) Description 07/29/2023 Notation [facility] Health Information Management [facility], [address] [place] [id number] Generic, Provider [address] [address] PROGRESS NOTE Social History Tobacco Use Types Packs/Day Years [...] on filedocumented in this encounter Care Teams Secondary Connector Armature Relationship Specialty Start Date End Date Ameena Rodríguez APRN [facility] [address] [place] [address] PCP - General Nurse Practitioner - Family Medicine 02/17/22 documented as of this encounter
--- OUTSIDE RECORDS SUMMARY | 2025-01-06 14:55 | XMS_ITS | Encounter Summary ---
Author Organization [facility]: [facility] & [facility] Address [address] [place] [address] Care Team Providers Care Wire Mesh Filter Fabricator Name Role Phone Ameena Rodríguez APRN Primary Care Provider [phone] Encounter Details Date Type Department Care Team (Late st Contact Info) Description 07/22/2024 Telephone [facility] [address] [place] [phone] Fe Martinez, JAZLYN Social History Tobacco Use Types Packs/Day Years Used Date Smoking Tobacco: Former Cigarettes Smokeless Tobacco: Never Comments:Quit 08/14/2021 Alcohol Use Standard Drinks/Week Comments Yes 0 (1 standard drink = 0.6 oz pur e alcohol) 1-2 month [facility] Utilities Answer Date Recorded In the past 12 months has [employer], gas, oil, or water company threatened to shut off services in your [...] place to sleep or slept in a mcc (including now)? No 11/13/2023 Sex and Gender Information Value Date Recorded Sex Assigned at Female 08/26/2023 3:54 PM EDT Gender Identity Female 08/26/2023 3:54 PM EDT Sexual Orientation Choose not to disclose 2022 3:54 PM EDT documented as of this encounter Miscellaneous Notes * Telephone Encounter - Fe Martinez RN - 07/22/2024 3:02 PM EDT [phone]. States she saw MM yesterday for TP injections neck and upper back and the pain is worse than it was before. They told me it could get really sore before it got better but I'm checking to make sure this is normal. She has been using ice which helps a little. Reassurance given and told her she could call next week if not better. documented in this encounter Plan of Treatment Not on file documented as of this encounter Visit Diagnoses Not on filedocumented in this encounter Care Teams Wire Mesh Filter Fabricator Relationship Specialty Start Date End Date Ameena [place]rí[place] [address] PCP - General Nurse Practitioner - Family Medicine 02/17/22 documented as of this encounter
--- OUTSIDE RECORDS SUMMARY | 2025-01-06 14:55 | XMS_ITS | Encounter Summary ---
Author Organization [facility] Address [facility] [place] [address] Care Team Providers Care Tack Welder Name Role Phone Amena Huang APRN Primary Care Provider Encounter Details Date Type Department Care Team (Latest Contact Info) Description 01/05/2025 Travel Social History Tobacco Use Types Packs/Day Years Used Date Smoking Tobacco: Former Cigarettes 1 31.7 0 11/09/1988 - 08/09/2020 Smokeless Tobacco: Never Alcohol Use Standard Drinks/Week Comments Yes 2 (1 standard drink = 0.6 oz pur e alcohol) 1-2 drinks per month [facility] Inpatient Questions Answer Date Recorded Does [...] on filedocumented in this encounter Care Teams Tack Welder Relationship Specialty Start Date End Date Amena Huang APRN [address] [place] [address] PCP - General Family Medicine 12/02/24 documented as of this encounter
--- OUTSIDE RECORDS SUMMARY | 2025-01-06 14:55 | XMS_ITS | Patient Health Record ---
Author Organization [facility] Address [address] [place] [address] Care Team Providers Care Senior Software Tester Name Role Phone Ameena Rodríguez Primary Care Provider Unavailab Keely Menon Unavailable [phone] Adarsh Aguillon Unavailable [phone] Allergies No Known Allergies Reason For Referral Reason *IBS w/Constipation Referring Provider First Name Luis Referring Provider Last Name Lu Referring Provider Speciality Family Med icine Referred Organization [facility] Referred Provider Adarsh Aguillon Referred Address [address], [place],[address],[place] Referred Provider Specialty Gastroentero logy General Notes Gigi Ludwig 06/23/2024 08:17:53 AM >OV scheduled 08/05 Referral Priority Routine Medications Medication SIG (Take, Route, Frequency, Duration) Notes Start Date End Date Status Acetaminophen Extra Strength 1000mg prn Active Ibuprofen 200 MG 3 tabs Orally Once a day as needed Active Lyrica 50 MG 1 capsule Orally Once a day at bedtime Generic OK, likely preferred due to cost 05/08/2023 Active HERBALS Once a day at bedtime Active LORazepam 1 MG 1 tablet at bedtime as needed Orally Once a day Active Paxil 40 MG 2 Tablets Orally Once a day Active traZODone HCl 100 MG TAKE 1 TABLET BY MOUTH AT BEDTIME Oral Active Zolpidem Tartrate 10 MG 1 tablet at bedtime as needed Orally Once a day Active ZyrTEC Allergy 10 MG 1 tablet Orally Once a day Active Social History Tobacco Use: Social History Observation Description Date Details (start date - stop date) Never Smoker NA - NA Sex Assigned At : Social History Observation Description Sex Assigned At Female Alcohol Screen Question Answer Notes Did you have a drink contain ing alcohol in the past year? Yes How often did you have a dri nk containing alcohol in the past year? Monthly or less (1 point) How many drinks did you have on a typical day when you were drinking in the past year? 1 or 2 drinks (0 point) Points 1 Interpretation Negative Tobacco Screen Question Answer Notes Are you a: nonsmoker Section Notes: marijuana @ HS daily, ETOH 1 x weekly. marijuana @ HS daily, ETOH 1 x weekly. marijuana @ HS daily, ETOH 1 x weekly. marijuana @ HS daily, ETOH 1 x weekly. marijuana @ HS daily, ETOH 1 x weekly. Problems Problem Type SNOMED Code ICD Code Onset Dates Problem Status W/U Status Risk Notes Problem Lumbosacral spondylosis without myelopathy (23609421) Lumbosacral spondylosis without myelopathy (M47.817) Active confirmed Problem 714220052 Right lumbosacral radiculopathy (M54.17) Active confirmed Problem 87709489 Degenerative disc disease, cervical (M50.30) Active confirmed Problem 80803306 Degenerative disc disease at L5-S1 level (M51.36) Active confirmed Problem Degeneration of cervical intervertebral disc (52332781) Other cervical disc degeneration at C5-C6 level (M50.322) Active confirmed Problem 794374168 Facet arthritis, degenerative, L5-S1 level, 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) Active confirmed Problem [id number] H/O lumbar discectomy (Z98.890) Active confirmed Plan Of Treatment No Information Insurance Providers Payer Name Payer Address Payer Phone Subscriber Number Group Number Insured Name Patient Relationship to Insured Coverage Start Date Coverage End Date [employer] [place] [place] [address] [place] [address] [id number] Evita Dalal Self - patient is the insured Medications Administered Medication Instructions Date of Administration Dosage Notes Celestone 04/23/2023 6 mg Medical (General) History Medical History History ICD Code C5-6 HNP and MICAH Surgical History Surgery Date(Month/Year) bunionectomy section dilatation and curettage tonsillectomy and adenoidectomy
--- OUTSIDE RECORDS SUMMARY | 2025-01-06 14:55 | XMS_ITS | Clinical Summary ---
Author Organization [facility] Address [facility] [place] [address] Care Team Providers Care Rim Roller Setter Name Role Phone ReinaJessAmenajanet CID Primary Care Provider Allergies Active Allergy Reactions Criticality Noted Date Comments Animal Dander Medium 10/15/2023 Cats and dogs Medications Medication Sig Dispensed Refills Start Date End Date Status tretinoin (RETIN-A) 0.05 % Cream APPLY TO AFFECTED AREA AT BEDTIME 11/15/2019 Active triamcinolone (Kenalog) 0.1 % Cream APPLY TO AFFECTED AREA TWICE A DAY FOR 2 WEEKS, THEN ON WEEKENDS ONLY 08/08/2022 Active zolpidem (Ambien) 10 mg tablet Take 0.5-1 tablets by mouth nightly as needed for Sleep. 90 tablet 1 11/17/2023 Active traZODone (Desyrel) 100 mg tablet TAKE 1 TABLET BY MOUTH EVERY DAY AT NIGHT 90 tablet 1 05/17/2024 Active proGESTerone (Prometrium) 100 mg capsuleIndications:H ormone replacement therapy (postmenopausal) Take 1 capsule by mouth daily. 90 capsule 4 06/09/2024 Active estradioL (Climara) 0.0375 mg/24 hr Patch WeeklyIndications:Me nopausal syndrome Change 1 patch on the skin once a week. 12 patch 3 07/08/2024 Active clonazePAM (KlonoPIN) 0.5 mg tablet Take 0.5 mg by mouth 2 times daily as needed for Anxiety. Active Desvenlafaxine succinate ER (Pristiq) 100 mg ER 24 hr tablet Take 100 mg by mouth once. Active Active Problems Patient Care Coordination No te Formatting of this note migh t be different from the original. CS - BA 12/25/23 Problem Noted Date Diagnosed Date Hormone replacement therapy (postmenopausal) 11/2023 Myofascial neck pain, Right 05/03/2024 Overview (05/03/2024): 05/02/2024-patient with persistent right-sided myofascial neck pain, patient with history of cervical DDD, status post cervical spine surgery, 11/2023. Has had some general improvement overall but still with persistent discomfort. Discussed and reviewed with the patient. Continue other measures, massage, self massage, gentle range of motion exercises, PT referral. - Trial of tender point injections, repeat in 1 to 2 weeks, if helpful to the patient. - PT referral - Myofascial release per patient - Massage therapy - Mouthguard for possible clenching Assessment & Plan (05/03/2024 1:45 PM EDT): 05/02/2024-patient with persistent right-sided myofascial neck pain, patient with history of cervical DDD, status post cervical spine surgery, 11/2023. Has had some general improvement overall but still with persistent discomfort. Discussed and reviewed with the patient. Continue other measures, massage, self massage, gentle range of motion exercises, PT referral. - Trial of tender point injections, repeat in 1 to 2 weeks, if helpful to the patient. - PT referral - Myofascial release per patient - Massage therapy - Mouthguard for possible clenching Numbness and tingling in lef t hand, likely median neuropathy 05/03/2024 Overview (05/03/2024): 05/02/2024-patient reports longstanding intermittent left hand numbness and tingling, flared up, recently associated with flexion of the neck. Patient's status post cervical spine surgery, 11/2023. Patient now reporting somewhat improved. Exam today negative exacerbation with cervical spine exam. Suspect concurrent carpal tunnel. Patient with enlarged and restricted median nerve on limited ultrasound. - Wear carpal tunnel wrist braces nightly - If no benefit after 3 to 4 weeks, then obtain EMG and consider hydrodissection versus median nerve release via orthopedic surgery Assessment & Plan (05/03/2024 1:52 PM EDT): 05/02/2024-patient reports longstanding intermittent left hand numbness and tingling, flared up, recently associated with flexion of the neck. Patient's status post cervical spine surgery, 11/2023. Patient now reporting somewhat improved. Exam today negative exacerbation with cervical spine exam. Suspect concurrent carpal tunnel. Patient with enlarged and restricted median nerve on limited ultrasound. - Wear carpal tunnel wrist braces nightly - If no benefit after 3 to 4 weeks, then obtain EMG and consider hydrodissection versus median nerve release via orthopedic surgery Acute non intractable tension-type headache 03/09 Assessment & Plan (03/22/2024 1:44 PM EDT): Persistent headache on and off since March 01, not quite continuously but for the majority of the time, appears to be tension type with some progression to migraine level however not classic migraine. Neurologic exam is reassuring no red flags at this time. Patient has a history of cervical spine issues with recent cervical spine surgery. - Discussed and reassured the patient - Discussed pain management, acetaminophen and ibuprofen, she is pessimistic about effectiveness - Trial of muscle relaxer, since tizanidine was not overly effective, trial of cyclobenzaprine nightly and perhaps if necessary during the day as long as she is not driving or operating dangerous machinery - Push fluids - Topical ice, heat, combination - Agree with myofascial release/massage - Today, trial of 30 mg Toradol intramuscular injection then instruct the patient to go home, rest, and a cool dark environment. - Neurology referral given relatively new onset and patient anxiousness. Defer any imaging for the time being. Chronic allergic rhinitis 07/01/2023 OAB (overactive bladder) 03/04/2022 Overview (01/13/2024): Last Assessment & Plan: The pt was counseled that overactive bladder (OAB) is a symptom complex with a variable and chronic course that needs to be managed over time, that it primarily affects quality of life, that there is no single ideal treatment, and that available treatments vary in the effort required from the patient as well as in invasiveness, risk of adverse events, and reversibility. We discussed potential treatment strategies including behavioral [...] constipation management. Pelvic pressure in female 03/04/2022 Overview (01/13/2024): Last Assessment & Plan: Possibly due to chronic constipation. I have ordered a pelvic ultrasound transvaginal if necessary. If abnormal results will refer to Gynecology. Degeneration of lumbosacral intervertebral disc 02/06/2022 History of protein S deficiency 09/03/2020 Cigarette smoker 09/03/2020 DDD (degenerative disc disea se), cervical, post surgery 11/202303/11/2017 Overview (05/03/2024): 11/2023-cervical spine surgery, placement of intervertebral disc by neurosurgery at [facility]. Depression, major, recurrent, mild 11/21/2016 Multiple pigmented nevi 02/18/2012 Overview (04/17/2021): Greater than 50 increasing personal risk for melanoma Greater than 50 increasing personal risk for melanoma Greater than 50 increasing personal risk for melanoma Dysplastic nevus 11/21/2009 Overview (04/17/2021): In the past In the past In the past IBS (irritable bowel syndrome) 11/21/2009 Anxiety disorder 03/23/2009 Overview (04/17/2021): Lexapro Lexapro Lexapro Assessment & Plan (05/03/2024 1:46 PM EDT): Still struggling somewhat, overall doing fairly well. Having some stressors. Discouraged. Anxious about headaches, right-sided neck pain, postsurgical status etc. - Reassurance - Trial of mouthguard because of patient perception of clenching Protein S deficiency complicating 03/09 Overview (04/17/2021): No history of VTE On prophylactic lovenox, transitioned to heparin 7500 bid 05/10 (taking 5000 bid per 05/22 note) Last dose 10pm 06/01 Plan prophylaxis only if delivery No history of VTE On prophylactic lovenox, transitioned to heparin 7500 bid 05/10 (taking 5000 bid per 05/22 note) Last dose 10pm 06/01 Plan prophylaxis only if delivery No history of VTE On prophylactic lovenox, transitioned to heparin 7500 bid 05/10 (taking 5000 bid per 05/22 note) Last dose 10pm 06/01 Plan prophylaxis only if delivery Resolved Problems Problem Noted Date Diagnosed Date Resolved Date Multiple joint pain 01/20/2024 05/03/20 Overview (01/20/2024): History of rash, seen in early January, with negative strep, negative Lyme. Chronic nonintractable headache 07/01/2023 04/30/2024 Atrophic vaginitis 03/04/2022 Overview (01/13/2024): Last Assessment & Plan: Today we discussed the risks and benefits of topical vaginal estrogen use. We discussed the lower likelihood of these events with topical estrogen as a systemic absorption is low. We discussed the risk of high-dose systemic estrogen which includes the risk of uterine and breast carcinoma, venous thromboembolic events, cardiovascular events. Constipation 03/04/2022 04/30/2024 Overview (01/13/2024): Last Assessment & Plan: For constipation: beginning today I want you [...] and improving both got and vaginal mike. (23134 santa of lactobacillus ) daily Magnesium oxide 400 mg daily helps to improve movement of intestines. Continue drinking fluids aim for 64 oz- 2 liters of water daily. Dried prunes, apricots may help. If need to clean out use one bottle of citrate of mag.. If not improving refer to GI. Lumbosacral radiculopathy 02/06/2022 Lumbosacral spondylosis without myelopathy 02/06/2022 04/30/2024 Metatarsalgia, right foot 03/03/2018 Chronic low back pain 11/05/20162023 Bunion, right foot 02/20/2016 Chondromalacia of right patella 02/06/2016 04/30/2024 Lateral epicondylitis 08/20/20152023 Hives 11/21/2009 04/30/2024 Human papilloma virus infection 11/21/2009 04/30/2024 Vertigo 11/21/2009 04/30/2024 Advanced maternal age during 03/23/2009 04/30/2024 Overview (10/29/2020): Elevated T21 risk on screen, amnio 46XX Elevated T21 risk on screen, amnio 46XX Encounters Date Type Department Care Team Description 01/05/2025 2:40 PM EST Office Visit Gastroenterology and Hepatology at [address] [phone] Micheal Oconnor MD Chronic constipation 01/05/2025 Travel 12/02/2024 2:55 PM EST Anesthesia Event Endoscopy at [address] [phone] Kendra Rosario CRNA 12/02/2024 2:45 PM EST - 12/02/2024 3:30 PM EST Surgery Endoscopy at [address] [phone] Micheal Oconnor MD COLONOSCOPY, DIAGNOSTIC (WRVU 3.26) 12/02/2024 1:52 PM EST - 12/02/2024 4:18 PM EST Hospital Encounter PACU at [address] [phone] Micheal Oconnor MD Discharge Disposition: Home 11/25/2024 [place] [address] Shanti Blount RN from Last 3 Months Immunizations Name Administration Dates Next Due Covid-19 Monovalent (Pfizer Comirnaty purple cap) 12yrs+ (1993-2195) 09/29/2021,03/02/2021,02/02/2021 Influenza (Novel R1n4-53) Al l formulations 09/24/2009 Influenza Quadrivalent, Pres ervative Free 11/21/2016 Influenza Trivalent, Preservative Free 1 12/03/2018(Deferred: Patient Refused),08/11/2011,08/11/2009 MMR Vaccine LIVE 09/22/2001 Pneumococcal 23-Valent Polys accharide (Pneumovax 23) 11/21/2016 Td Adult 01/06/2001 Tdap (Adacel, Boostrix) 07/27/2018,08/15/2008 Zoster Recombinant (ShingRix) 09/07/2023 Family History Medical History Relation Comments Breast Cancer Other great aunt Relation Status Comments Other Social History Tobacco Use Types Packs/Day Years Used Date Smoking Tobacco: Former Cigarettes 1 31.7 0 11/09/1988 - 08/09/2020 Smokeless Tobacco: Never Tobacco Cessation:Counseling Given: Not Answered Alcohol Use Standard Drinks/Week Comments Yes 2 (1 standard drink = 0.6 oz pur e alcohol) 1-2 drinks per month [facility] Inpatient Questions Answer Date Recorded Does Anyone [...] not to disclose 2020 4:34 PM EDT Last Filed Vital Signs Vital Sign Reading Time Taken Comments Blood Pressure 106/78 01/05/2025 2:47 PM EST Pulse 84 01/05/2025 2:47 PM EST Temperature 36.5 ??C (97.7 ??F) 12/02/2024 3:25 PM ES T Respiratory Rate 17 12/02/2024 3:30 PM EST Oxygen Saturation 96% 01/05/2025 2:47 PM EST Inhaled Oxygen Concentration - - Weight 73 kg (161 lb) 01/05/2025 2:47 PM EST Height 162.6 cm (5' 4 ) 12/02/2024 2:22 PM EST Body Mass Index 27.64 12/02/2024 2:22 PM EST Plan of Treatment Health Maintenance Due Date Last Done Comments CT Colonography 1968 FIT DNA 1968 FIT 1970 Sigmoidoscopy 1970 HIV screen 1986 Hepatitis C Screening 1986 Hepatitis B vaccine (0-59 yr s) (1) 1987 Breast Cancer Share Decision Needed 2008 Pneumoccocal Vaccine: 50+ (2 of 2 - PCV) 2018 11/21/2016 Zoster vaccine (2 of 2) 11/02/2023 09/07/2023 Advance Directive 2023 Covid-19 Vaccine (4 - 2023-2 5 season) 2024 09/29/2021, 03/02/2021, 02/02/2021 Influenza (Flu) vaccine (1 o f 1 - Influenza standard series) 07/10/2024 11/21/2016, 08/11/2011, 09/24/2009, Additional history exists Diabetes Screening (HgbA1C o r Glucose) 04/30/2026 04/30/2023, 04/30/2023, 01/28/2022, Additional history exists Breast Cancer screening 09/02/2026 09/02/20, 05/20/2023, 02/11/2022, Additional history exists Tetanus/Diphtheria/Pertussis Vaccines (3 - Td or Tdap) 07/27/2028 07/27/2018, 08/15/2008, 01/06/2001 HPV test 06/09/2029 06/09/2024, 05/2020, 11/21/2016 PAP Smear 06/09/2029 06/09/2024, 05/2020, 11/21/2016 Colonoscopy 12/02/2029 12/02/2024, 11/10, 09/23/2019, Additional history exists Colorectal Cancer Screening 12/02/2029 Sigmoidoscopy (10 year) with FIT yearly 12/02/2034 12/02/2024, 12/02/2024, 09/23/2019, Additional history exists Lipid Screening Discontinued 04/30/2023, 06/02/2019 Procedures Procedure Name Priority Date/Time Associated Diagnosis Comments Colonoscopy, Diagnostic (26042) 12/02/2024 2:56 PM EST 5 yr f/u GI PROVATION PATIENT INSTRUCTIONS Routine 12/02/2024 2:47 PM EST COLONOSCOPY Routine 12/02/2024 2:47 PM EST MAMMO SCREENING CAD AND CONNOR BILATERAL Routine 09/02/2024 11:14 AM EDT Breast cancer screening by mammogram HPV Routine 06/09/2024 1:46 PM EDT AUTOMATIC FABRIC CUTTER CYTOLOGY FINAL REPORT Routine 06/09/2024 1:46 PM EDT LIPID PANEL (REFLEX DIRECT LDL) Routine 04/30/2023 10:06 AM EDT Routine adult health maintenance HEMOGLOBIN A1C Routine 04/30/2023 10:06 AM EDT Routine adult health maintenance from Last 3 Months or Most Recently Relevant to Health Maintenance Results * Patient Instructions (12/02/2024 2:47 PM EST) GI Provation Patient Instruction ENDOSCOPY UNIT Discharge Instructions Patient Name: ?Evita Dalal Date of : ?1970 Attending Physician:Lino Oconnor MD Date of Procedure: ?? Thursday, December 02, 2024 Today's Procedure: Colonoscopy Indication: High risk colon cancer surveillance: Personal history of adenomatous colonic polyps Your Doctor's Findings: The perianal and digital rectal examinations were normal. Scattered diverticula were found in the sigmoid colon. Internal hemorrhoids were found during retroflexion. ??The hemorrhoids were medium-sized. The exam was otherwise without abnormality. Your Doctor's Recommendations: You are being discharged to home. Eat a high fiber diet. Continue your present medications. Your physician has recommended a repeat colonoscopy in seven years for surveillance. Lower Endoscopy Procedures 1. It is necessary that someone drive you home because even if you do not feel tired or sleepy, your judgement and reflexes will not be normal. It is recommended that you do not drive, drink alcoholic beverages or sign legal documents for 24 hours. Also, operating electrical devices or machinery should not be attempted until the effects of the medication wear off. (24 hours is suggested) 2.Localized irritation of the vein may occur at the site of medication injection. A warm moist face cloth wrapped around the area with a saran wrap covering to hold the heat in, four times a day for 20 minutes will help. 3.Notify your physician if you experience excessive cramping or abdominal pain, chest pain, fever, regurgitation or vomiting of blood, or excessive rectal bleeding (1/2 cup or more). It is not unusual to have a small amount of bleeding from the biopsy or polyp removal site. 4.The Doctor's office will notify you of biopsy results by phone or letter in about two weeks. 5.You may experience some abdominal bloating or gas for a couple hours after the procedure, this is normal. Air was introduced during the examination. 6. If you have any problems or questions regarding your procedure please call Micheal Oconnor MD at #[phone] After 5pm Thursday-Thursday and on weekends or holidays please call [phone] and the hospital grinding machine operator portable can page the medical record consultant ?gastroenterolo gist to return your call. Micheal Oconnor MD Micheal Oconnor MD 12/02/2024 3:21:53 PM This report has been signed electronically. PROVATION 12/02/2024 2:47 PM EST Micheal Oconnor MD INFORMATIONAL ON LY PROVATION * COLONOSCOPY (12/02/2024 2:47 PM EST) COLONOSCOPY Patient Name: Evita Dalal Procedure Date: 12/02/2024 2:47 PM ?Attending MD: Micheal Oconnor MD, Date of : 1970 ? Order #: [id number] Age: 54 ?Instrument Name: [id number] Procedure: ? Colonoscopy Indications: ? High risk colon cancer ? surveillance: Personal history of ? adenomatous colonic polyps Providers: ? Micheal Oconnor MD, Suly Gutierres, ? Brittney HOBSON Referring MD: ? Medicines: ? Monitored Anesthesia Care Complications: ? No immediate complications. Procedure: ? Pre-Anesthesia Assessment: ? - Prior to the procedure, a History ? and Physical was performed, and ? patient medications, allergies and ? sensitivities were reviewed. The ? patient's tolerance of previous ? anesthesia was reviewed. ? The procedure, indications, ? benefits, risks and alternatives ? were explained to the patient. ? Specifically discussed were ? potential complications including, ? but not limited to, bleeding, ? perforation, infection, missing a ? cancer, and adverse medication ? reactions. The patient was placed ? in the left lateral decubitus ? position, and a digital rectal exam ? was performed. The Colonoscope was ? inserted in the anus and under ? direct visualization, advanced to ? the cecum, identified by ? appendiceal orifice and ileocecal ? valve. Careful inspection was made ? as the colonoscope was withdrawn. ? The colonoscopy was somewhat ? difficult due to significant ? looping. Successful completion of ? the procedure was aided by ? straightening and shortening the ? scope to obtain bowel loop ? reduction and applying abdominal ? pressure. The patient tolerated the ? procedure well. The quality of the ? bowel preparation was adequate. ? Scope Withdrawal Time: 0 hours 9 minutes 5 seconds Findings: ? The perianal and digital rectal examinations were ? normal. ? Scattered diverticula were found in the sigmoid colon. ? Internal hemorrhoids were found during retroflexion. ? The hemorrhoids were medium-sized. ? The exam was otherwise without abnormality. ? Impression: ?- Diverticulosis in the sigmoid ? colon. ? - Internal hemorrhoids. ? - The examination was otherwise ? normal. ? - No specimens collected. Recommendation: ?- Discharge patient to home. ? - High fiber diet. ? - Continue present medications. ? - Repeat colonoscopy in 7 years for ? surveillance. ? Procedure Code(s): ? --- Professional --- ? 32746, Colonoscopy, flexible; ? diagnostic, including collection of ? specimen(s) by brushing or washing, ? when performed (separate procedure) Diagnosis Code(s): ? --- Professional --- ? Z86.0101, Personal history of ? adenomatous and serrated colon ? polyps ? K64.8, Other hemorrhoids ? K57.30, Diverticulosis of large ? intestine without perforation or ? abscess without bleeding ? --- Technical --- ? Z86.0101, Personal history of ? adenomatous and serrated colon ? polyps ? K64.8, Other hemorrhoids ? K57.30, Diverticulosis of large ? intestine without perforation or ? abscess without bleeding CPT copyright 2022 [employer]. All rights reserved. The codes documented in this report are preliminary and upon medical records coder review may be revised to meet current compliance requirements. Micheal Oconnor MD ___ Micheal Oconnor MD 12/02/2024 3:21:53 PM This report has been signed electronically. Number of Addenda: 0 PROVATION 12/02/2024 2:47 PM EST Micheal Oconnor MD GENERAL SURGICAL OR DERABLES PROVATION * Mammo Screening Cad and Connor Bilateral (09/02/2024 11:14 AM EDT) WORKSTATION ID [id number] RAD Anatomical Region Laterality Modality Breast Bilateral Mammography Impressions 09/02/2024 4:55 PM EDT No mammographic evidence of malignancy. Routine screening mammography is recommended. FINAL ASSESSMENT: BI-RADS Category 1: Negative * ??Regular screening mammograms starting at age 40 reduce the risk of from breast cancer. * ??Individuals should discuss the risks and benefits with their provider to determine their preferred breast cancer screening schedule, and at what age screening should stop. * ??Individuals should report any breast changes to a health care provider right away. * ??Some Individuals, because of their family history, a genetic tendency, or other factors, should consider being screened with annual breast MRI as well as with mammograms. * ??Screening mammography may not detect 10-15% of?breast cancers. Thank you for letting us participate in the care of this patient. ??If you are a health care provider and have any questions regarding this report, please contact the number below. ??For patients who have questions please contact the health ambulatory care coordinator that requested your imaging first. ? Electronically signed by: MANN JHAVERI MD, [facility] ([phone]), at 09/02/2024 4:[address] ??[address] Narrative 09/02/2024 4:55 PM EDT EXAMINATION: MAMMO SCREENING CAD AND CONNOR BILATERAL REASON FOR EXAM: Screening TECHNIQUE: CC and MLO views were obtained of BOTH breasts. 2D and 3D tomosynthesis images were obtained. Computer aided detection was used. COMPARISON: 05/20/2023 BREAST DENSITY: There are scattered areas of fibroglandular density. FINDINGS: There are no suspicious microcalcifications, masses, or areas of distortion. Stable appearance. Kelly Ahuja MD [facility] MAMMO ORDERABLES * HPV (06/09/2024 1:46 PM EDT) HPV16 NEGATIVE NEGATIVE [facility] HPV 18 NEGATIVE NEGATIVE [facility] HPV Other HR NEGATIVE NEGATIVE [facility] HPV Interpretation See Comment [facility] Comment: NEGATIVE for high-risk HPV *. ?? *Testing negative for high risk HPV means that high risk HPV DNA is not detected in the specimen for the following 14 types tested: types 16, 18, 31, 33, 35, 39, 45, 51, 52, 56, 58, 59, 66, and 68. The test is not intended to detect low risk HPV types. ?? Method: Colette giancarlo HPV test (FDA-approved for clinical use) Specimen: HPV Testing ? Cytology Liquid Based Prep This test is validated for cervical specimens only for use in cervical cancer screening. ??Other uses or specimen types are not validated/recommended. Cervical 06/09/2024 1:46 PM EDT 06/09/2024 10:09 PM EDT Narrative Resulting Agency Comment Spec In Lab Kelly Ahuja MD PATHOLOGY/CYTOLOGY O RDERARICARDO [facility] [place] [address] * Wet Pan Mixer Cytology Final Report (06/09/2024 1:46 PM EDT) Wet Pan Mixer Cytology Final Report [id number] ? Location: [facility] The signing pathologist has (i) examined the relevant preparation(s) for the specimen(s) and (ii) rendered or confirmed the diagnosis(es). . ? Wet Pan Mixer Final DIAGNOSIS Normal Negative for intraepithelial lesion or malignancy (NILM). For consensus guidelines for the management of cervical cancer screening test results, please see: ?? http://www.asccp.o rg . Electronically signed by: ?Bryant RENTERIA(ASCP) JessJovannyDebra Cee Verified: ??06/20/2024 14:15 ??Library Technical Assistant Performed at: ??[facility] [place] [place], [place] [address] [employer] Clerk: Ralph Jennings MD, FCAP, ??CLIA Certificate: [id number] HPV RESULTS HPV16 (Result) ?Negative HPV18 (Result) ?Negative HPVOHR (Result) ? Negative HPV (Interpretation) ?See Below HPV (Interpretation) Text: NEGATIVE for high-risk HPV *. *Testing negative for high risk HPV means that high risk HPV DNA is not detected in the specimen for the following 14 types tested: types 16, 18, 31, 33, 35, 39, 45, 51, 52, 56, 58, 59, 66, and 68. The test is not intended to detect low risk HPV types. Method: Colette giancarlo HPV test (FDA-approved for clinical use) Specimen: HPV Testing ?? - Cytology Liquid Based Prep This test is validated for cervical specimens only for use in cervical cancer screening. ??Other uses or specimen types are not validated/rec ommended. The Colette giancarlo ? HPV test was validated, performed and results reported through the [facility] ([facility]) at [facility]. ? - Hector Rivera, PhD, [facility], Director-[facility] STATEMENT OF ADEQUACY Specimen submitted is satisfactory for evaluation. No endocervical component present. Note: ??Initial cross-sectional studies suggested that KATLIN cells were more commonly identified when an endocervical component was present, however subsequent longitudinal studies fail to show that women lacking an endocervical component in a Pap smear are at increased risk for KATLIN. CLINICAL INFORMATION HPV Option: ?Concurrent HPV and Pap CT/NG Option: ?No Preparation: ? Liquid based Pap Specimen Source: ? Cervical/Endocervi jean paul LMP: ? LENS ASSORTER Hysterectomy: ?No : ?No : ?No I.U.D.: ?No Pelvic Radiation: ?No Hist Abnl Pap/Biopsy: ?No . CLINICAL INFORMATION Prior AUTOMATIC FABRIC CUTTER Therapy: ? No Hist of HPV Vaccine: ? No ICD Diagnosis: ? Z12.4 Encounter for screening for malignant neoplasm of cervix Clinical Data, Significant Therapy and Clinical Impression ?? : ?_ This Pap Test has been evaluated with the assistance of the MedSocketPrep Pap Test Imaging System. Note: The Pap test is a screening test for cervical cancer with an inherent false-negative rate dependent upon several variables. For further information please contact the [facility]. Reference: Dino HALE. Sales Specialist of Pap Smear Results. In: Baldo BS, Kannan HH, ed. The Pap Smear. [place]: Johnson, 2002: 71-77. [facility] 06/09/2024 1:46 PM EDT Kelly Ahuja MD PATHOLOGY/CYTOLOGY O RDERABLES Performing Organization Address City/[facility]/ZIP Co de Phone Number [facility] [place] [address] * Hemoglobin A1c (04/30/2023 10:06 AM EDT) Hemoglobin A1c 5.2 4.3 - 5.6 % [facility] Estimated Average Glucose 103 mg/dL [facility] Blood 04/30/2023 10:0 6 AM EDT 04/30/2023 10:06 AM EDT Narrative Resulting Agency Comment Spec In Lab Bessie Serrano APRN CHEMISTRY ORDERABLE S Performing Organization Address City/[facility]/ZIP Co de Phone Number [facility] [address] [place] [address] * Lipid Panel (Reflex Direct LDL) (04/30/2023 10:06 AM EDT) Cholesterol, Total 161 mg/dL [facility] Comment: Lower Risk: <200 mg/dL Average Risk: 200-239 mg/dL Higher Risk: >pf=817 mg/dL Triglyceride 147 mg/dL [facility] Comment: Average Risk/Lower Risk: <150 mg/dL Borderline High Risk: 150-199 mg/dL High Risk: 200-499 mg/dL Very High Risk: >kw=200 mg/dL HDL Cholesterol 51 mg/dL [facility] Comment: Males: ?? Higher Risk: <40 mg/dL Females: ?? Higher Risk: <50 mg/dL LDL Cholesterol 81 mg/dL [facility] Comment: Lowest Risk: <100 mg/dL Lower Risk: 100-129 mg/dL Borderline High Risk: 130-159 mg/dL High Risk: 160-189 mg/dL Very High Risk: >xu=053 mg/dL Cholesterol/HDL Ratio 3.2 ratio [facility] Lipid Interpretation See Note [facility] Comment: Lipid management should be guided by a patient? s ASCVD risk, goals and preferences. ACC/AHA Guidelines recommend high intensity statin if clinical ASCVD or LDL greater than or equal to 190 mg/dL. http://MobileMD.com/CSU-ZXR-Rmxkxkqbu Adults aged 40-75 with LDL 70-189 mg/dL should have their 10 year ASCVD risk estimated with the ACC/AHA ASCVD risk retail and restaurant http://tools.acc.org/IPSHL-Ofok-Zpwulckup/ Statin should be discussed if risk greater than or equal to 7.5% in non-diabetics. With diabetes, moderate intensity statin is recommended if risk less than 7.5%, high intensity if risk greater than or equal to 7.5%. Annual lipid monitoring on statins is not necessary. Evaluate secondary causes of Triglycerides greater than 500 mg/dL or LDL greater than 190 mg/dL: See table 6 of ACC/AHA Guideline. Lifestyle modification is a critical component of ASCVD risk reduction. Blood 04/30/2023 10:0 6 AM EDT 04/30/2023 10:06 AM EDT Narrative Resulting Agency Comment Spec In Lab Bessie Serrano CARD SERVICES SPECIALIST CHEMISTRY ORDERABLE S [facility] [address] [place] [address] from Last 3 Months or Most Recently Relevant to Health Maintenance Advance Directives * Attempt Cardiopulmonary Resuscitation - Inpatient (Latest Code Status on File) Date Activated Date Inactivated Comments 11/14/2021 6:55 AM 11/14/2021 3:23 PM Question Answer Comments Code Status decision made by: Patient Care Teams Rim Roller Setter Relationship Specialty Start Date End Date Amena Huang APRN [address] [place] [address] PCP - General Family Medicine 12/02/24
--- OUTSIDE RECORDS SUMMARY | 2025-01-06 14:55 | XMS_ITS | Encounter Summary ---
Author Organization [facility] Care Address [address] [place] [address] Care Team Providers Care Steamer Blocker Name Role Phone Ameena Rodríguez APRN Primary Care Provider [phone] Encounter Details Date Type Department Care Team (Late st Contact Info) Description 09/01/2023 Telephone [facility] [address] [place] [phone] Mark Pulido MD [address] [place] [address] [address] [place] [address] Social History Tobacco Use Types Packs/Day Years [...] encounter Miscellaneous Notes * Telephone Encounter - Gagan Gamez RN - 09/21/2023 9:50 AM EST Patient called about booking procedure with TTN. It looks like the 08/27 office note is completed and a prep for procedure was entered. * Telephone Encounter - Kiera Patel - 09/15/2023 10:04 AM EST Patient calling back to see about proceeding with surgery with TTN Please sign office note & place booking order for patient * Telephone Encounter - Marina Seymour RN - 09/08/2023 2:49 PM EDT 08/27/23 OV w/ TTN not signed; no SBO entered. TTN - please sign OV and enter SBO. * Telephone Encounter - Kiera Platt - 09/08/2023 1:50 PM EDT Patient called back asking to schedule surgery. Last office note not complete. Please place bookingorder. * Telephone Encounter - Kiera Patel - 09/01/2023 2:40 PM EDT Patient calling to schedule surgery with TTN last office note not complete Please place booking order documented in this encounter Plan of Treatment Not on file documented as of this encounter Visit Diagnoses Not on filedocumented in this encounter Care Teams Steamer Blocker Relationship Specialty Start Date End Date AlpineAmeena APRN [address] [address] PCP - General Nurse Practitioner - Family Medicine 02/17/22 documented as of this encounter
--- OUTSIDE RECORDS SUMMARY | 2025-01-06 14:55 | XMS_ITS ---
Author Organization [facility] Health Services Address [address] [place] [address] Care Team Providers Care Commissioner Public Works Name Role Phone Ameena Rodríguez Primary Care Provider Adarsh Driver [phone] REASON FOR VISIT Constipation Social History Sex Assigned At : Social History Observation Description Sex Assigned At Female Encounters Encounter Location Date Provider Diagnosis [facility] [address] [address] [place] [address] 06/15/2024 Adarsh Aguillon Plan Of Treatment No Information Progress Notes * Curry DALALCharlyOB: 9 (54 yo F)Acc No.[id number]:06/15/2024 UNLOCKED PROGRESS NOTE Progress Notes Patient:?Evita DALAL Provider:?Adarsh Aguillon M.D. :1970???Age:53 Y???Sex:Female D ate:06/15/2024 Address:[address] [place], [place] [id number] Pcp:Ameena Rodríguez Subjective: * Chief Complaints: * ???1. Constipation. * Medical History:? Objective: * Vitals:? Assessment: Plan: * Treatment: * * The named appointment provid er may or may not be the originator of this progress note, and it is not deemed complete until electronically signed by the appointment provider. Sign off status: Pending * Provider:?Adarsh Aguillon M.D. Date:? 06/15/2024 Generated for Nikos ackerman/Rach/eTransmitting on:?01/06/2025 02:55 PM EST
--- OUTSIDE RECORDS SUMMARY | 2025-01-06 14:55 | XMS_ITS | Encounter Summary ---
Author Organization [facility]: [facility] & [facility] Care Address [address] [place] [address] Care Team Providers Care Inspector Aide Name Role Phone QuebeckAmeena Elena CID Primary Care Provider [phone] Encounter Details Date Type Department Care Team (Late st Contact Info) Description 12/23/2023 Notation [place] [address] Generic, Provider [facility] [address] [place] [address] PATIENT CORRESPONDENCE Social History Tobacco Use Types Packs/Day Years Used Date Smoking Tobacco: Former Cigarettes Smokeless Tobacco: Never Comments:Quit 08/14/2021 Alcohol Use Standard Drinks/Week Comments Yes 0 (1 standard drink = 0.6 oz pur e alcohol) 1-2 month [facility] Utilities Answer Date Recorded In the past 12 months has [employer], gas, oil, or water company threatened to [...] place to sleep or slept in a snf (including now)? No 11/13/2023 Sex and Gender Information Value Date Recorded Sex Assigned at Female 08/26/2023 3:54 PM EDT Gender Identity Female 08/26/2023 3:54 PM EDT Sexual Orientation Choose not to disclose 2022 3:54 PM EDT documented as of this encounter Plan of Treatment Not on file documented as of this encounter Visit Diagnoses Not on filedocumented in this encounter Care Teams Inspector Aide Relationship Specialty Start Date End Date Ameena Rodríguez APRN [facility] [address] [place] [address] PCP - General Nurse Practitioner - Family Medicine 02/17/22 documented as of this encounter
--- OUTSIDE RECORDS SUMMARY | 2025-01-06 14:55 | XMS_ITS | Encounter Summary ---
Author Organization [facility] & [facility] Care Address [address] [place] [address] Care Team Providers Care Proced Tech Name Role Phone Ameena Rodríguez APRN Primary Care Provider [phone] Reason for Referral * Diagnostic Services Referrals (Routine) - Closed Specialty Diagnoses / Procedures Referred By Contac t Referred To Contact Pain Management Diagnoses Chronic bilateral low back pain, unspecified whether sciatica present Myofascial pain Lumbosacral spondylosis without myelopathy Procedures Trigger Points; Inj. 3 or more muscles () - If USG add 66929; Fluro add [id number] Jennifer Dow APRN [address] [place] [address] [facility] [address] [place] [address] Referral ID Status Reason Start Date Expiration Date V isits Requested Visits Authorized [id number] Closed Consult and Treat 11/24/2024 12/23/2024 1 1 Encounter Details Date Type Department Care Team (Late Contact Info) Description 11/21/2024 Telephone [facility] [address] [address] Jennifer Castro, JAZLYN Social History Tobacco Use Types Packs/Day Years Used Date Smoking Tobacco: Former Cigarettes Smokeless Tobacco: Never Comments:Quit 08/14/2021 Alcohol Use Standard Drinks/Week Comments Yes 0 (1 standard drink = 0.6 oz pur e alcohol) 1-2 month [facility] Utilities Answer Date Recorded In the past 12 months has th e electric, gas, oil, or water company threatened [...] encounter Miscellaneous Notes * Telephone Encounter - Gina Pierce - 12/08/2024 7:24 AM EST Okay appt still shows as a procedure for TPI injections, I changed it to a follow up and sent a staff message to DF and AB to see if something needs to go to billing for a correction * Telephone Encounter - Jennifer Dow APRN - 12/07/2024 3:02 PM EST She was seen 11/24 but did not get a procedure BA * Telephone Encounter - Gina Pierce - 12/07/2024 11:50 AM EST Looks like patient just had TPI injection on 11/24/24 are you looking to repeat them again on 12/22?:if so I would need to have an order entered, Please advise. * Telephone Encounter - Beatrice Bravo - 11/22/2024 11:54 AM EST I changed the appt note to reflect tpis along with the follow up and attached the authorized referral. *Note: Prior auth is not a guarantee of payment* * Telephone Encounter - Jennifer Dow APRN - 11/22/2024 9:48 AM EST Yes ok- order placed BA * Telephone Encounter - Beatrice Bravo - 11/22/2024 9:21 AM EST Spoke to patient and insurance is still the same so ok to change the appt on 11/24/24 to TPIs if ok with BA. Pre cert will need an order entered if BA agrees. * Telephone Encounter - Beatrice Bravo - 11/22/2024 9:14 AM EST I will * Telephone Encounter - Jennifer Dow APRN - 11/22/2024 7:49 AM EST Please follow up with patient about insurance BA * Telephone Encounter - Beatrice Bravo - 11/21/2024 3:57 PM EST Does the patient have the same insurance as of 11/09/24? The insurance hasn't been verified since 10/12/24. If it is she can have the TPIs but if insurance has changed at all it would be a follow up only. * Telephone Encounter - Jennifer Castro RN - 11/21/2024 3:04 PM EST Patient calling and inquiring if she can have TPI with BA at her scheduled appt on , 11/24/24. Sent to both BA and pre-cert to advise. Is auth required for TPI? documented in this encounter Plan of Treatment Scheduled Orders Name Type Priority Associated Diagnoses Orde r Schedule Trigger Points; Inj. 3 or more muscles () - If USG add 36988; Fluro add [id number] Procedures Routine Chronic bilateral low back pain, unspecified whether sciatica present Myofascial pain Lumbosacral spondylosis without myelopathy Expected: 12/13/2024, Expires: 11/22/2025 documented as of this encounter Visit Diagnoses Diagnosis Chronic bilateral low back pain, unspecified whether sciatica present- Primary Myofascial pain Mylagia and myositis, unspecified Lumbosacral spondylosis without myelopathy documented in this encounter Care Teams Proced Tech Relationship Specialty Start Date End Date Ameena Rodríguez APRN [address] [address] PCP - General Nurse Practitioner - Family Medicine 02/17/22 documented as of this encounter
--- OUTSIDE RECORDS SUMMARY | 2025-01-06 14:55 | XMS_ITS | Encounter Summary ---
Author Organization [facility]: [facility] & [facility] Health Care Address [address] [place] [address] Care Team Providers Care Dispatcher Clerk Name Role Phone Ameena Rodríguez APRN Primary Care Provider [phone] Encounter Details Date Type Department Care Team (Late st Contact Info) Description 11/11/2023 Telephone [facility] Same Day Surgery [address] [place] [address] Suha Baldwin LNA Social History Tobacco Use Types Packs/Day Years Used Date Smoking Tobacco: Former Cigarettes Smokeless Tobacco: Never Comments:Quit 08/14/2021 Alcohol Use Standard Drinks/Week Comments Yes 0 (1 standard drink = 0.6 oz pur e alcohol) 1-2 month [facility] Utilities Answer Date Recorded In [...] place to sleep or slept in a skilled nursing (including now)? No 11/13/2023 Sex and Gender Information Value Date Recorded Sex Assigned at Female 08/26/2023 3:54 PM EDT Gender Identity Female 08/26/2023 3:54 PM EDT Sexual Orientation Choose not to disclose 2022 3:54 PM EDT documented as of this encounter Plan of Treatment Not on file documented as of this encounter Visit Diagnoses Not on filedocumented in this encounter Care Teams Dispatcher Clerk Relationship Specialty Start Date End Date Ameena Rodríguez APRN [facility] [address] [place] [address] PCP - General Nurse Practitioner - Family Medicine 02/17/22 documented as of this encounter
--- OUTSIDE RECORDS SUMMARY | 2025-01-06 14:55 | XMS_ITS ---
Author Organization [facility] Services Address [address] [place] [address] Care Team Providers Care Pipe Bender Name Role Phone Ameena Rodríguez Primary Care Provider Keely Covarrubias [phone] REASON FOR VISIT NPES Social History Sex Assigned At : Social History Observation Description Sex Assigned At Female Encounters Encounter Location Date Provider Diagnosis [facility] Medicine [address] [place] [address] 03/17/2024 Keely Nelson Plan Of Treatment No Information Progress Notes * Curry DALALCharlyOB: 9 (54 yo F)Acc No.[id number]:03/17/2024 UNLOCKED PROGRESS NOTE Progress Notes Patient:?Evita DALAL Provider:?Keely Nelson MD :1970???Age:53 Y???Sex:Female D ate:03/17/2024 Address:[address] [place], [place] [id number] Pcp:Ameena Rodríguez Subjective: * Chief Complaints: * ???1. NPES. * Medical History:? Objective: * Vitals:? Assessment: Plan: * Treatment: * * The named appointment provid er may or may not be the originator of this progress note, and it is not deemed complete until electronically signed by the appointment provider. Sign off status: Pending * Provider:?Keely Nelson MD Date :?03/17/2024 Generated for Nikos ackerman/Rach/Carson on:?01/06/2025 02:54 PM EST
--- OUTSIDE RECORDS SUMMARY | 2025-01-06 14:55 | XMS_ITS | Clinical Summary ---
Author Organization [facility]: [facility] & [facility] Care Address [address] [facility] [address] [place] [address] Care Team Providers Care Adult Ministries Director Name Role Phone Ameena Rodríguez Elena CID Primary Care Provider [phone] Allergies Active Allergy Reactions Criticality Noted Date [...] and improving both got and vaginal mike. ([address] santa of lactobacillus ) daily Magnesium oxide [...] 10pm 06/01 Plan prophylaxis only if delivery Encounters Date Type Department Care Team Description 12/06/2024 2:00 PM EST Office Visit [facility] [address] [place] [address] [phone] Adarsh Wall MD Lumbar radiculopathy (Primary Dx); Recurrent displacement of lumbar disc; Lumbar spondylosis 12/06/2024 1:30 PM EST - 12/06/2024 11:59 PM EST Hospital Encounter [facility] [address] [place] [phone] Adarsh Wall MD Lumbar radiculopathy Discharge Disposition: Routine Discharge Home 12/06/2024 Notation [facility] Health Information Management [facility], [address] [place] [id number] Generic, Provider OPIOID CONSENT 12/06/2024 Prep for Procedure [facility] [address] [place] [address] [phone] Adarsh Wall MD 11/29/2024 Orders Only [facility] [address] [place] [phone] Adarsh Wall MD Lumbar radiculopathy (Primary Dx) 11/24/2024 2:20 PM EST - 11/24/2024 11:59 PM EST Hospital Encounter [facility] at [address] [phone] Jennifer Dow APRN Chronic bilateral low back pain, unspecified whether sciatica present; Myofascial pain; Lumbosacral spondylosis without myelopathy Discharge Disposition: Routine Discharge Home 11/21/2024 Telephone [facility] at [address] [phone] Jennifer Castro RN 11/07/2024 3:41 PM EST - 11/07/2024 11:59 PM EST Hospital Encounter [facility] at [address] [phone] Iker Hoang MD Discharge Disposition: Routine Discharge Home 11/07/2024 8:17 AM EST - 11/07/2024 3:40 PM EST Hospital Encounter [facility] [address] [phone] Iker Hoang MD Chronic bilateral low back pain, unspecified whether sciatica present; Lumbar herniated disc Discharge Disposition: Routine Discharge Home 11/06/2024 10:21 AM EST - 11/06/2024 11:59 PM EST Hospital Encounter [facility] at [address] [phone] Jennifer Dow APRN Chronic bilateral low back pain, unspecified whether sciatica present; Lumbar herniated disc Discharge Disposition: Routine Discharge Home 10/13/2024 7:58 AM EST - 10/13/2024 11:59 PM EST Hospital Encounter [facility] at [address] [phone] Jennifer Dow APRN Chronic bilateral low back pain, unspecified whether sciatica present (Primary Dx); Lumbar herniated disc Discharge Disposition: Routine Discharge Home from Last 3 Months Family History Medical History Relation Comments Cancer Negative FH Gout Negative FH Kidney Stones Negative FH Stroke Negative FH Social History Tobacco Use Types Packs/Day Years Used Date Smoking Tobacco: Former Cigarettes Smokeless Tobacco: Never Tobacco Cessation:Counseling Given: Not Answered Comments:Quit 08/14/2021 Alcohol Use Standard Drinks/Week Comments Yes 0 (1 standard drink = 0.6 oz pur e alcohol) 1-2 month [facility] Utilities Answer Date Recorded In the past 12 months has [employer], gas, oil, or water [employer] threatened to shut off services in your [...] place to sleep or slept in a residential (including now)? No 11/13/2023 Sex and Gender [...] 11/24/2024 2:38 PM EST Plan of Treatment Health Maintenance Due Date Last Done Comments Cholesterol 1968 HIV Screening 1983 Hepatitis C Screening 1986 DTaP/Tdap/Td Vaccines (1 - Tdap) 1987 Hepatitis B Vaccines (1 of 3 - 19+ 3-dose series) 1987 PAP Smear 1989 Colonoscopy 2013 Colorectal Cancer Screening 2013 FIT-DNA 2013 FIT 2013 FOBT 2013 Flexible Sigmoidoscopy 2013 Zoster (Shingles) Vaccines (1 of 2) 2018 Screening Mammogram 05/13/2020 05/13/2019, 12/31/2017, 12/31/2017, Additional history exists COVID-19 Vaccine ( season) 2024 Influenza Vaccine (#1) 2024 7, 08/11/2011, 09/24/2009, Additional history exists Diabetes Screening 10/21/2026 10/21/2023 HIB Vaccines Aged Out No longer eligi ble based on patient's age to complete this topic HPV Vaccines Aged Out No longer eligi ble based on patient's age to complete this topic Hepatitis A Vaccines Aged Out No long er eligible based on patient's age to complete this topic IPV Vaccines Aged Out No longer eligi ble based on patient's age to complete this topic Meningococcal B (MenB) Vaccines Aged Out No longer eligible based on patient's age to complete this topic Meningococcal Vaccines Aged Out No lo nger eligible based on patient's age to complete this topic Pneumococcal Vaccine: Pediatrics (0-5 years) and At-Risk Patients (6-50 years) Aged Out No longer eligible based on patient's age to complete this topic Medical Devices Implanted Type Area Doctor Of Radiology Device Identifier Shelf Expiration Date Model / Serial / Lot Simplify Disc Sz2 Ht4 [id number] Implanted:Qty: 1 on 11/12/2023 by Adarsh Wall MD at [facility] N/A: [employer] 03/18/2027 [id number] / / [id number] Simplify Disc Sz2 Ht5 [id number] Implanted:Qty: 1 on 11/12/2023 by Adarsh Wall MD at [facility] N/A: [employer] 06/09/2027 [id number] / / [id number] Explanted Type Area Doctor Of Radiology Device Identifier Shelf Expiration Date Model / Serial / Lot Bunion Hardware Procedures Procedure Name Priority Date/Time Associated Diagnosis Comments XR SPINE LUMBAR 4+ VIEWS Routine 12/06/2024 1:46 PM EST Lumbar radiculopathy XR PAIN MGT FLUORO ([facility] ONLY) Routine 11/07/2024 3:41 PM EST EPID/SPINAL, LUMBAR OR SACRAL, SINGLE W/ IMAGING INCLUDED ([id number]) Routine 11/07/2024 8:30 AM EST Chronic bilateral [...] MD 12/06/2024 8:47 PM Adarsh Wall MD GR * XR Pain Management Fluoro (11/07/2024 3:41 PM EST) Narrative S PACS - 11/07/2024 3:41 PM EST IMPRESSION Fluoroscopy was provided to Dr. Iker Hoang MD. No interpretation was provided by the [facility] Department of Diagnostic Imaging. Iker Hoang MD [facility] PACS * MR Spine-Lumbar w/o Contrast [...] Franko Syed MD 11/07/2024 12:40 PM Jennifer BEARD MR * (ABNORMAL) Comprehensive Metabolic Panel (10/21/2023 2:39 PM EST) Sodium 138 136 - 145 mmol/L LAB SEROLOGY [facility] METHOD 10/21/2023 4:44 PM EST [facility] Potassium 4.3 3.5 - 5.1 mmol/L LAB SEROLOGY [facility]LLICA METHOD 10/21/2023 4:44 PM EST [facility] Chloride 105 98 - 107 mmol/L LAB SEROLOGY [facility] METHOD 10/21/2023 4:44 PM [facility] Carbon Dioxide 28 20 - 31 mmol/L LAB SEROLOGY [facility] METHOD 10/21/2023 4:44 PM [facility] Anion Gap 5 5 - 15 mmol/L [facility] SEROLOGY [facility] METHOD 10/21/2023 4:44 PM [facility] Glucose 109(H) 74 - 100 mg/dL LAB SEROLOGY [facility] METHOD 10/21/2023 4:44 PM [facility] BUN 21 9 - 23 mg/dL LAB SEROLOGY [facility] METHOD 10/21/2023 4:44 PM [facility] Creatinine 0.78 0.55 - 1.02 mg/dL LAB SEROLOGY [facility] METHOD 10/21/2023 4:44 PM [facility] BUN/Creatinine Ratio 26.92 LAB SEROLOGY [facility] METHOD 10/21/2023 4:44 PM [facility] Calcium 9.3 8.3 - 10.6 mg/dL LAB SEROLOGY [facility] METHOD 10/21/2023 4:44 PM [facility] Protein, Total 6.5 5.7 - 8.2 g/dL LAB SEROLOGY [facility] METHOD 10/21/2023 4:44 PM [facility] Albumin 4.3 3.2 - 4.8 g/dL LAB SEROLOGY [facility] METHOD 10/21/2023 4:44 PM [facility] AST 15 <=34 U/L [facility] SER[facility] METHOD 10/21/2023 4:44 PM [facility] ALT 12 10 - 49 U/L [facility] SER[facility] METHOD 10/21/2023 4:44 PM [facility] ALK Phos 68 46 - 116 U/L [facility] SEROLOGY [facility] METHOD 10/21/2023 4:44 PM [facility] Bilirubin, Total 0.3 0.3 - 1.2 mg/dL LAB SEROLOGY [facility] METHOD 10/21/2023 4:44 PM [facility] Globulin 2.2 g/dL 10/21/2023 4:44 PM [facility] Albumin Globulin Ratio 1.95 10/21/2023 4:44 PM [facility] eGFR 90 >=60 mL/min/1.7 3m*2 10/21/2023 4:44 PM [facility] Blood ENTIRE ANTECUBITAL VEIN / Unknown Venipuncture / Unknown 10/21/2023 2:39 PM EST 10/21/2023 2:39 PM EST Evita Velázquez APRN LAB BLOOD ORDER AKILAH [facility] [address] [place] [address] from Last 3 Months or Most Recently Relevant to Health Maintenance Care Teams Adult Ministries Director Relationship Specialty Start Date End Date Ameena Rodríguez APRN [facility] [address] [place] [id number] PCP - General Nurse Practitioner - Family Medicine 02/17/22
--- OUTSIDE RECORDS SUMMARY | 2025-01-06 14:55 | XMS_ITS | Encounter Summary ---
Author Organization [facility]: [facility] & [facility] Care Address [address] [facility] [address] [place] [address] Care Team Providers Care Hardware Installation Coordinator Name Role Phone Ameena Rodríguez APRN Primary Care Provider [phone] Encounter Details Date Type Department Care Team (Late st Contact Info) Description 08/27/2023 Notation [facility] Health Information Management [facility], [address] [place] [phone] Generic, Provider [address] [address] MEDICATION AGREEMENT (NON-NARCOTIC) Social History Tobacco Use Types Packs/Day Years [...] on filedocumented in this encounter Care Teams Hardware Installation Coordinator Relationship Specialty Start Date End Date Ameena Rodríguez APRN [facility] [address] [place] [address] PCP - General Nurse Practitioner - Family Medicine 02/17/22 documented as of this encounter
--- OUTSIDE RECORDS SUMMARY | 2025-01-06 14:55 | XMS_ITS | Encounter Summary ---
Author Organization [facility] Care Address [address] [facility] [address] [place] [address] Care Team Providers Care Small Products Ii Assembler Name Role Phone [place]Ameena Elena CID Primary Care Provider [phone] Reason for Referral * Specialty Services (Routine) - Pending Review Specialty Diagnoses / Procedures Referred By Contac t Referred To Contact Pain Management Diagnoses Myofascial pain Procedures REFERRAL PAIN MANAGEMENT Luis Leigh MD [facility] [address] [place] [address] [facility] [address] [place] [address] Referral ID Status Reason Start Date Expiration Date Visits Requested Visits Authorized [id number] Pending Review Consult and Treat 06/14/2024 06/14/2025 1 1 Encounter Details Date Type Department Care Team (Late st Contact Info) Description 06/14/2024 Transcribe Orders [facility] [address] [place] [address] Luis Leigh MD [facility] [address] [place], [place] [address] Myofascial pain (Primary Dx) Social History Tobacco Use Types Packs/Day Years Used Date Smoking Tobacco: Former Cigarettes Smokeless Tobacco: Never Comments:Quit 08/14/2021 Alcohol Use Standard Drinks/Week Comments Yes 0 (1 standard drink = 0.6 oz pur e alcohol) 1-2 month [facility] Utilities Answer Date Recorded In the [...] place to sleep or slept in a group home (including now)? No 11/13/2023 Sex and Gender Information Value Date Recorded Sex Assigned at Female 08/26/2023 3:54 PM EDT Gender Identity Female 08/26/2023 3:54 PM EDT Sexual Orientation Choose not to disclose 2022 3:54 PM EDT documented as of this encounter Plan of Treatment Scheduled Orders Name Type Priority Associated Diagnoses Orde r Schedule REFERRAL PAIN MANAGEMENT Referral Routine Myofascial pain Ordered: 06/14/2024 documented as of this encounter Visit Diagnoses Diagnosis Myofascial pain- Primary Mylagia and myositis, unspecified documented in this encounter Care Teams Small Products Ii Assembler Relationship Specialty Start Date End Date Ameena Rodríguez APRN [facility] [address] [place] [id number] PCP - General Nurse Practitioner - Family Medicine 02/17/22 documented as of this encounter
== END 2025-01-06 13:57 | disposition home or self-care (01) ==
PROVIDERS: Visit Provider Neurological Surgery
DX: M51.372 Other intervertebral disc degeneration, lumbosacral region with discogenic back pain and lower extremity pain (principal); M51.16 Intervertebral disc disorders with radiculopathy, lumbar region
CPT/HCPCS: 99204

== ENCOUNTER → 2025-01-06 12:50 | Outpatient (BNVA) | payer BC, SELFPAY | PROVIDERS: Visit Provider Neurological Surgery ==